=== PATIENT | female | born 1985 | race Caucasian/White ===

== ENCOUNTER 2025-02-23 03:22 | Observation (INO) | payer OTHER, SELFPAY ==
--- OUTSIDE RECORDS SUMMARY | 2025-01-28 15:32 | XMS_ITS | Encounter Summary ---
Author Organization [facility] ([place], [place], [place], [place]) Address [address] [place] [address] Care Team Providers Care Home Health Nurse Licensed Practical Name Role Phone EusebioMoiz Primary Care Provider [phone] Reason for Visit * Reason Comments Chest Pain Encounter Details Date Type Department Care Team (Late st Contact Info) Description 01/28/2025 3:32 PM EDT - 01/28/2025 6:38 PM EDT Emergency [facility] Emergency Department [address] [place] [phone] Rodri Poole MD [address] [place] [address] Chest pain, unspecified (Primary Dx); Chest pain, unspecified type Discharge Disposition: Home or Self Care Social History Tobacco Use Types Packs/Day Years Used Date Smoking Tobacco: Never Smokeless Tobacco: Never Alcohol Use Standard Drinks/Week Comments Not Currently 0 (1 standard drink = 0.6 oz pur e alcohol) Family and Community Support Answer Alber e Recorded Help with Day to Day Activities Not on file 07/22/2023 Feeling Lonely or Isolated Not on file 07/22 Educational Attainment Answer Date Leonidas rded Speak language other than Togolese at home Not on file 07/22/2023 Want help with school or training Not on file 07/22/2023 Substance Use Answer Date Recorded Used prescription meds for non-medical reasons N ot on file 07/22/2023 Used illegal drugs past 12 months Not on file 07/22/2023 Comments No Sex and Gender Information Value Date Recorded Sex Assigned at Not on file Legal Sex Female 8:28 PM CDT Gender Identity Not on file Sexual Orientation Not on file documented as of this encounter Last Filed Vital Signs Vital Sign Reading Time Taken Comments Blood Pressure 136/60 01/28/2025 6:00 PM EDT Pulse 68 01/28/2025 6:37 PM EDT Temperature 36.4 C (97.5 F) 01/28/2025 3:37 PM EDT Respiratory Rate 16 01/28/2025 6:37 PM EDT Oxygen Saturation 97% 01/28/2025 6:37 PM EDT Inhaled Oxygen Concentration - - Weight 77.1 kg (170 lb) 01/28/2025 3:37 PM EDT Height 167.6 cm (5' 6 ) 01/28/2025 3:37 PM EDT Body Mass Index 27.44 01/28/2025 3:37 PM EDT documented in this encounter Discharge Instructions * Discharge Instructions* Pamela Bey NP - 01/28/2025 6:32 PM EDT Please follow-up with your primary care provider and de icer installer in the next 1 to 2 days for recheck. Return to emergency department for new or worsening symptoms. * Attachments The following attachments cannot be sent through Care Everywhere. * Nonspecific Chest Pain Adult [id number] (Togolese) documented in this encounter ED Notes * Pamela eBy NP - 01/28/2025 3:44 PM EDT Subjective Chief Complaint: Chest Pain 33-year-old female with past medical history of pulmonary embolism and cardio myopathy presents to the emergency department with complaints of chest pain. Patient reports she woke up this morning around 9 AM began having midsternal chest pain, does not radiate. She reports associated shortness of breath. She denies abdominal pain, nausea, vomiting. She denies dizziness, lightheadedness, headache.She reports no recent fever or chills. She denies cough, congestion. She reports she is followed bycardiology in [place]. She states that she has frequent PVCs and was apparently scheduled for an ablation last week but had to miss it due to having to work. She takes metoprolol for the PVCs and tachycardia history. History provided by: Patient bilingual interpreter used: No Chest Pain Associated symptoms: shortness of breath Associated symptoms: no abdominal pain, no back pain, no cough, no diaphoresis, no dizziness, no fatigue, no fever, no headache, no nausea, no numbness, no palpitations, no vomiting and no weakness Patient History Past Medical History: Diagnosis Date Cardiomyopathy (HCC) Kidney stones PE (pulmonary thromboembolism) (HCC) Past Surgical History: Procedure Laterality Date HYSTERECTOMY No family history on file. Social History Tobacco Use Smoking status: Never Smokeless tobacco: Never Substance Use Topics Alcohol use: Not Currently I reviewed the HPI, ROS and PFSH documentation recorded by others in the medical record and supplemented my note as needed. Review of Systems Review of Systems Constitutional: Negative for chills, diaphoresis, fatigue and fever. HENT: Negative for congestion, ear pain and sore throat. Respiratory: Positive for shortness of breath. Negative for cough and chest tightness. Cardiovascular: Positive for chest pain. Negative for palpitations and leg swelling. Gastrointestinal: Negative for abdominal pain, blood in stool, constipation, diarrhea, nausea and vomiting. Genitourinary: Negative for dysuria and flank pain. Musculoskeletal: Negative for back pain. Skin: Negative for rash. Neurological: Negative for dizziness, syncope, weakness, light-headedness, numbness and headaches. All other systems reviewed and are negative. Physical Exam ED Triage Vitals [01/28/25 1537] Encounter Vitals Group BP 131/65 Systolic BP Percentile Diastolic BP Percentile Pulse 65 Resp 14 Temp 97.5 ??F (36.4 ??C) Temp src Temporal Art SpO2 97 % Weight 77.1 kg (170 lb) Height 1.676 m (5' 6 ) Head Circumference Peak Flow Pain Score Eight Pain Loc Pain Education Exclude from Growth Chart Physical Exam Vitals and nursing note reviewed. Constitutional: General: She is not in acute distress. Appearance: Normal appearance. She is not ill-appearing, toxic-appearing or diaphoretic. HENT: Head: Normocephalic and atraumatic. Right Ear: Tympanic membrane, ear canal and external ear normal. Left Ear: Tympanic membrane, ear canal and external ear normal. Nose: Nose normal. Mouth/Throat: Mouth: Mucous membranes are moist. Pharynx: Oropharynx is clear. No oropharyngeal exudate or posterior oropharyngeal erythema. Eyes: Extraocular Movements: Extraocular movements intact. Conjunctiva/sclera: Conjunctivae normal. Pupils: Pupils are equal, round, and reactive to light. Neck: Vascular: No JVD. Trachea: No tracheal deviation. Cardiovascular: Rate and Rhythm: Normal rate and regular rhythm. Pulses: Normal pulses. Heart sounds: Normal heart sounds. Heart sounds not distant. No murmur heard. Pulmonary: Effort: Pulmonary effort is normal. No respiratory distress. Breath sounds: Normal breath sounds. No decreased breath sounds or wheezing. Chest: Chest wall: Tenderness present. Abdominal: General: Abdomen is flat. Bowel sounds are normal. Palpations: Abdomen is soft. Tenderness: There is no abdominal tenderness. There is no right CVA tenderness, left CVA tenderness, guarding or rebound. Musculoskeletal: General: Normal range of motion. Cervical back: Normal range of motion and neck supple. No rigidity or tenderness. Right lower leg: No edema. Left lower leg: No edema. Skin: General: Skin is warm and dry. Capillary Refill: Capillary refill takes less than 2 seconds. Findings: No rash. Neurological: General: No focal deficit present. Mental Status: She is alert and oriented to person, place, and time. Mental status is at baseline. Cranial Nerves: No cranial nerve deficit. Motor: No weakness. Psychiatric: Mood and Affect: Mood normal. Behavior: Behavior normal. Neurological Exam Mental Status Alert. Oriented to person, place, and time. Cranial Nerves CN III, IV, : Extraocular movements intact bilaterally. Pupils equal round and reactive to light bilaterally. Ortho Exam ED Course & MDM Medications sodium chloride 0.9% (NS) bolus (0 mLs intravenous Stopped 01/28/25 1740) ketorolac (TORADOL) injection 15 mg (15 mg intravenous Given 01/28/25 1622) morphine injection 4 mg (4 mg intravenous Given 01/28/25 1729) ondansetron (ZOFRAN) injection 4 mg (4 mg intravenous Given 01/28/25 1730) Results for orders placed or performed during the hospital encounter of 01/28/25 CBC with Auto Diff Result Value Ref Range WBC 12.3 (H) 4.8 - 10.8 K/??L RBC 4.35 3.50 - 5.20 M/??L Hemoglobin 13.6 11.7 - 15.8 GM/DL Hematocrit 40.5 35.0 - 47.0 % MCV 93 81 - 101 fL MCH 31.3 27.0 - 34.0 pg MCHC 33.6 32.0 - 36.0 GM/DL RDW 12.6 11.5 - 14.5 % Platelets 274 150 - 400 K/CU MM MPV 10.3 9.4 - 12.4 fL Nucleated Red Blood Cell 0.0 0 - 0.2 % % Neutros 64 37 - 80 % % Lymphs 26 10 - 50 % % Monos 8 5 - 13 % % Eos 2 0 - 7 % % Baso 0 0 - 3 % NRBC Absolute <0.01 0 - 0.012 K/ul # Neutros 7.86 (H) 2.00 - 6.90 K/??L # Lymphs 3.17 0.60 - 3.40 K/??L # Monos 0.93 (H) 0.00 - 0.90 K/??L # Eos 0.21 0.00 - 0.70 K/??L # Baso 0.04 0.00 - 0.20 K/??L Immature Granulocytes-Relative 0.30 % # IG 0.04 (H) 0.00 - 0.00 K/uL Comprehensive metabolic panel Result Value Ref Range Sodium 139 136 - 145 meq/L Potassium 4.2 3.5 - 5.1 meq/L Chloride 106 98 - 107 meq/L CO2 24 21 - 32 meq/L Calcium 8.9 8.5 - 10.1 mg/dL Glucose 109 (H) 74 - 100 mg/dL BUN 10 7 - 18 mg/dL Creatinine 0.82 0.55 - 1.10 mg/dL BUN/Creatinine 12 Albumin 3.6 3.4 - 5.0 g/dL Alkaline Phosphatase 100 46 - 116 U/L ALT 28 12 - 78 U/L AST 30 15 - 37 U/L Total Bilirubin 0.5 0.2 - 1.0 mg/dL Protein, Total 7.6 6.4 - 8.2 gm/dL Anion Gap 13 11 - 22 A/G Ratio 0.9 Globulin 4.0 g/dL Osmolality Calc 277.2 mOsm/kg eGFR (mL/min/1.73m2) >60 >=60 mL/min/1.73m2 Lipase Result Value Ref Range Lipase 41 16 - 77 U/L Magnesium Result Value Ref Range Magnesium 2.0 1.8 - 2.4 mg/dL High Sensitivity Troponin I Result Value Ref Range Troponin I High Sensitivity (pg/mL) 4.5 4 - 60.3 pg/mL D-dimer Result Value Ref Range D-Dimer, Quant (SJMS SJE) 249.97 <=500.00 ng/mL FEU High Sensitivity Troponin I Result Value Ref Range Troponin I High Sensitivity (pg/mL) 4.9 4 - 60.3 pg/mL XR chest 1 view portable / bedside Final Result No acute cardiopulmonary process. Images reviewed, interpreted, and dictated by Dr. John Condon. Transcribed by Kayli Morales PA-C. ED Course as of 01/28/251831Jan 28, [address] Poole: I saw the patient [id number]. I performed a substantive portion of the MDM. [AR] ED Course User Index [AR] oRdri Poole MD ED Heart Score Date and Time Another reason for the patient's symptoms was identified History ECG Age Risk factorsTroponin Total User 01/28/25 1831 -- 1 0 0 1 0 2 CJS Procedures Medical Decision Making Patient initially presents with chest pain. On arrival patient no apparent distress, vital signs are reassuring. Patient is alert and oriented x 4, GCS 15, neurologically intact. Patient has reproducible chest tenderness on exam. Lungs clear bilaterally. Will obtain labs, EKG, chest x-ray. Patient given IV fluid bolus and Toradol. EKG sinus rhythm, no STEMI. X-ray per radiologist interpretation reveals no acute cardiopulmonary process. CBC reveals white blood cell 12.3 otherwise nonactionable. CMP nonactionable, lipase nonactionable, magnesium nonactionable, troponin 4.5. D-dimer nonactionable so suspicion for pulmonary emboli is very low. Repeat EKG sinus bradycardia, no STEMI. I called and spoke with Dr. Fraser at [facility] and he states patient should be ableto follow-up outpatient with their cardiology electrophysiology office. He will place referral for them to contact patient for close follow-up. Repeat troponin 4.9. Discussed findings with patient. On reassessment she is feeling better, chest pain-free. She has remained hemodynamically stable in the emergency department. Advised patient that she should call her de icer installer in the morning to establish close follow-up and reestablish appointment for ablation. Discussed returning to emergency depa rtment for any new or worsening symptoms. Cautious return precautions provided. Patient verbalized understanding and is agreeable to treatment plan. Amount and/or Complexity of Data Reviewed Labs: ordered. Decision-making details documented in ED Course. Radiology: ordered. Decision-making details documented in ED Course. ECG/medicine tests: ordered. Decision-making details documented in ED Course. Risk Prescription drug management. Assessment & Plan Clinical Impression Diagnosis Comment Added By Time Added Chest pain, unspecified Pamela Bey NP 01/28/2025 6:31 PM Disposition Discharge [1] - 01/28/2025 6:32 PM New Prescriptions No medications on file Contact information for follow-up Moiz Kapaln DO Specialty: Family Medicine Relationship: PCP - [facility] [address] [facility] [address] Next Steps: Schedule an appointment as soon as possible for a visit [facility] Emergency Department Specialty: Emergency Medicine [address] [facility] [phone] Next Steps: Follow up Instructions: As needed, If symptoms worsen Electronically Signed By Pamela Bey NP 01/28/25 1751 Pamela Bey NP 01/28/25 1832 Cosigned by Rodri Poole MD at 01/29/2025 5:20 PM EDT Associated attestation - Rodri Poole MD - 01/29/2025 4:20 PM CDT This visit was performed by both the physician and an APC. I personally evaluated and examined thepatient. I performed all aspects of the MDM as documented. . documented in this encounter Plan of Treatment Not on file documented as of this encounter Procedures Procedure Name Priority Date/Time Associated Diagnosis Comments FS_MODEL_IP_ECG 12-LEAD STAT 01/28/2025 6:05 PM EDT HIGH SENSITIVITY TROPONIN I STAT 01/28/2025 6:05 PM EDT CBC W/ AUTO DIFF STAT 01/28/2025 4:19 PM EDT HIGH SENSITIVITY TROPONIN I STAT 01/28/2025 4:19 PM EDT D-DIMER STAT 01/28/2025 4:19 PM EDT MAGNESIUM STAT 01/28/2025 4:19 PM EDT LIPASE STAT 01/28/2025 4:19 PM EDT COMPREHENSIVE METABOLIC PANEL STAT 01/28/2025 4:19 PM EDT XR CHEST 1 VIEW PORTABLE / BEDSIDE STAT 01/28/2025 3:44 PM EDT FS_MODEL_IP_ECG 12-LEAD STAT 01/28/2025 3:31 PM EDT documented in this encounter Results * ECG 12 lead (01/28/2025 6:05 PM EDT) VENTRICULAR RATE EKG/MIN 56 BPM GE MUSE ATRIAL RATE (MCT) 56 BPM GE MUSE [place] Interval 132 ms GE MUSE QRS-INTERVAL (MSEC) 76 ms GE MUSE QT Interval 452 ms GE MUSE QTC Interval 436 ms GE MUSE P [place] 49 degrees GE MUSE R AXIS (MCT) 41 degrees GE MUSE T Wave [place] 43 degrees GE MUSE [place] Diagnosis Sinus bradycardia Otherwise normal ECG Confirmed by Phu GAONA, YOSELIN ([id number]) on 01/29/2025 9:07:22 AM GE MUSE 01/28/2025 6:05 PM EDT 01/29/2025 9:07 AM EDT us Pamela J Strange SUPERVISOR FINAL ECG ORDERABLES Final Result Performing Organization Address City/[facility]/ZIP Co de Phone Number GE MUSE * High Sensitivity Troponin I (01/28/2025 6:05 PM EDT) Pathologist [facility] Troponin I High Sensitivity (pg/mL) 4.9 4 - 60.3 pg/mL 01/28/2025 6:29 PM EDT [facility] Comment: Troponin Result (pg/mL) *Interpretation 4-60.3 *Normal; less than 99th percentile of normal range >60.3 *Abnormal; greater than 99th percentile of normal range Biotin specimen concentration >300 ng/mL may lead to falsely depressed results for patient samples. Do not use this test for renal dysfunction patients (eGFR <60) unless it is confirmed that the patient is not taking Biotin. Blood Venipuncture / Unknown 01/28/2025 6:05 PM EDT 01/28/2025 6:08 PM EDT Pamela Herokunge SUPERVISOR FINAL LAB BLOOD ORDERABLES Final Res ult Performing Organization Address City/[facility] Co de Phone Number [facility] [address] [place] [address] * D-dimer (01/28/2025 4:19 PM EDT) Pathologist [facility] D-Dimer, Quant (SJMS SJE) 249.97 <=500.00 ng/mL FEU 01/28/2025 5:17 PM EDT [facility] Comment: A normal D-dimer result <500 ng/mL (FEU) has a negative predictive value of approximately 95% for the exclusion of acute pulmonary embolism (PE) or deep vein thrombosis when there is low or moderate pretest PE probability. D-dimer Normal Rates First trimester: 50-950 ng/mL (FEU) Second trimester: 302-1290 ng/mL (FEU) Third trimester: 130-1700 ng/mL (FEU) Blood Venipuncture / Unknown 01/28/2025 4:19 PM EDT 01/28/2025 4:25 PM EDT us Pamela J Strange SUPERVISOR FINAL LAB BLOOD ORDERABLES Final Res ult Performing Organization Address City/[facility]/ZIP Co de Phone Number [facility] [address] [place] [address] * High Sensitivity Troponin I (01/28/2025 4:19 PM EDT) Troponin I High Sensitivity (pg/mL) 4.5 4 - 60.3 pg/mL 01/28/2025 4:51 PM EDT [facility] Comment: Troponin Result (pg/mL) *Interpretation 4-60.3 *Normal; less than 99th percentile of normal range >60.3 *Abnormal; greater than 99th percentile of normal range Biotin specimen concentration >300 ng/mL may lead to falsely depressed results for patient samples. Do not use this test for renal dysfunction patients (eGFR <60) unless it is confirmed that the patient is not taking Biotin. Blood Venipuncture / Unknown 01/28/2025 4:19 PM EDT 01/28/2025 4:25 PM EDT us Pamela J Strange SUPERVISOR FINAL LAB BLOOD ORDERABLES Final Res ult Performing Organization Address [facility] Co de Phone Number [facility] [address] [place] [address] * Magnesium (01/28/2025 4:19 PM EDT) Magnesium 2.0 1.8 - 2.4 mg/dL 01/28/2025 4:51 PM EDT [facility] Blood Venipuncture / Unknown 01/28/2025 4:19 PM EDT 01/28/2025 4:25 PM EDT us Pamela J Strange SUPERVISOR FINAL LAB BLOOD ORDERABLES Final Res ult [facility] [address] [place] [address] * Lipase (01/28/2025 4:19 PM EDT) Lipase 41 16 - 77 U/L 01/28/2025 4:51 PM EDT [facility] Blood Venipuncture / Unknown 01/28/2025 4:19 PM EDT 01/28/2025 4:25 PM EDT us Pamela Bey SUPERVISOR FINAL LAB BLOOD ORDERABLES Final Res ult [facility] [address] [phone] * (ABNORMAL) Comprehensive metabolic panel (01/28/2025 4:19 PM EDT) Sodium 139 136 - 145 meq/L 01/28/2025 4:52 PM EDT [facility] Potassium 4.2 3.5 - 5.1 meq/L 01/28/2025 4:52 PM EDT [facility] Chloride 106 98 - 107 meq/L 01/28/2025 4:52 PM EDT [facility] CO2 24 21 - 32 meq/L 01/28/2025 4:52 PM EDT [facility] Calcium 8.9 8.5 - 10.1 mg/dL 01/28/2025 4:52 PM EDT [facility] Glucose 109(H) 74 - 100 mg/dL 01/28/2025 4:52 PM EDT [facility] BUN 10 7 - 18 mg/dL 01/28/2025 4:52 PM EDT [facility] Creatinine 0.82 0.55 - 1.10 mg/dL 01/28/2025 4:52 PM EDT [facility] BUN/Creatinine 12 01/28/2025 4:52 PM EDT [facility] Albumin 3.6 3.4 - 5.0 g/dL 01/28/2025 4:52 PM EDT [facility] Alkaline Phosphatase 100 46 - 116 U/L 01/28/2025 4:52 PM EDT [facility] ALT 28 12 - 78 U/L 01/28/2025 4:52 PM EDT [facility] AST 30 15 - 37 U/L 01/28/2025 4:52 PM EDT [facility] Total Bilirubin 0.5 0.2 - 1.0 mg/dL 01/28/2025 4:52 PM EDT [facility] Protein, Total 7.6 6.4 - 8.2 gm/dL 01/28/2025 4:52 PM EDT [facility] Anion Gap 13 11 - 22 01/28/2025 4:52 PM EDT [facility] A/G Ratio 0.9 01/28/2025 4:52 PM EDT [facility] Globulin 4.0 g/dL 01/28/2025 4:52 PM EDT [facility] Osmolality Calc 277.2 mOsm/kg 4:52 PM EDT [facility] eGFR (mL/min/1.73m2) >60 >=60 mL/min/1.7 3m2 01/28/2025 4:52 PM EDT [facility] Comment:ESTIMATED GFR IS NOT ACCURATE CREATININE CLEARANCE IN PREDICTING GLOMERULAR FILTRATION RATE. ESTIMATED GFR IS NOT APPLICABLE FOR DIALYSIS PATIENTS. Blood Venipuncture / Unknown 01/28/2025 4:19 PM EDT 01/28/2025 4:25 PM EDT us Pamela Bey SUPERVISOR FINAL LAB BLOOD ORDERABLES Final Res ult [facility] [address] [place] [address], [facility] [phone] * (ABNORMAL) CBC with Auto Diff (01/28/2025 4:19 PM EDT) WBC 12.3(H) 4.8 - 10.8 K/ L 01/28/2025 4:29 PM EDT [facility] RBC 4.35 3.50 - 5.20 M/ L 01/28/2025 4:29 PM EDT [facility] Hemoglobin 13.6 11.7 - 15.8 GM/DL 01/28/2025 4:29 PM EDT [facility] Hematocrit 40.5 35.0 - 47.0 % 01/28/2025 4:29 PM EDT [facility] MCV 93 81 - 101 fL 01/28/2025 4:29 PM EDT [facility] MCH 31.3 27.0 - 34.0 pg 01/28/2025 4:29 PM EDT [facility] MCHC 33.6 32.0 - 36.0 GM/DL 01/28/2025 4:29 PM EDT [facility] RDW 12.6 11.5 - 14.5 % 01/28/2025 4:29 PM EDT [facility] Platelets 274 150 - 400 K/CU MM 01/28/2025 4:29 PM EDT [facility] MPV 10.3 9.4 - 12.4 fL 01/28/2025 4:29 PM EDT [facility] Nucleated Red Blood Cell 0.0 0 - 0.2 % 01/28/2025 4:29 PM EDT [facility] % Neutros 64 37 - 80 % 01/28/2025 4:29 PM EDT [facility] % Lymphs 26 10 - 50 % 01/28/2025 4:29 PM EDT [facility] % Monos 8 5 - 13 % 01/28/2025 4:29 PM EDT [facility] % Eos 2 0 - 7 % 01/28/2025 4:29 PM EDT [facility] % Baso 0 0 - 3 % 01/28/2025 4:29 PM EDT [facility] NRBC Absolute <0.01 0 - 0.012 K/ul 01/28/2025 4:29 PM EDT [facility] # Neutros 7.86(H) 2.00 - 6.90 K/ L 01/28/2025 4:29 PM EDT [facility] # Lymphs 3.17 0.60 - 3.40 K/ L 01/28/2025 4:29 PM EDT [facility] # Monos 0.93(H) 0.00 - 0.90 K/ L 01/28/2025 4:29 PM EDT [facility] # Eos 0.21 0.00 - 0.70 K/ L 01/28/2025 4:29 PM EDT [facility] # Baso 0.04 0.00 - 0.20 K/ L 01/28/2025 4:29 PM EDT [facility] Immature Granulocytes-Re lative 0.30 % 01/28/2025 4:29 PM EDT [facility] # IG 0.04(H) 0.00 - 0.00 K/uL 01/28/2025 4:29 PM EDT [facility] Blood Venipuncture / Unknown 01/28/2025 4:19 PM EDT 01/28/2025 4:25 PM EDT Narrative [facility] - 01/28/2025 4:29 PM EDT When CBC w/ Auto Diff is ordered the lab will add a Manual Differential as a quality check at no additional charge if: Lymphocytes greater than seventy five percent with normal or increased WBC Monocytes greater than Fifteen percent Basophil greater than four percent Bands >10% or several immature myeloids are seen on scan Blast? Flag noted Atypical Lymph flag noted us Pamela Bey SUPERVISOR FINAL LAB BLOOD ORDERABLES Final Res ult [facility] [address] [place] [address], [facility] [phone] * XR chest 1 view portable / bedside (01/28/2025 3:44 PM EDT) Anatomical Region Laterality Modality X-Ray 01/28/2025 4:10 PM EDT Impressions 01/28/2025 4:22 PM EDT No acute cardiopulmonary process. Images reviewed, interpreted, and dictated by Dr. John Condon. Transcribed by Kayli Morales PA-C. Narrative 01/28/2025 4:22 PM EDT PORTABLE CHEST HISTORY: Precordial chest pain. COMPARISON: August 2024. FINDINGS: The heart is normal in size. The mediastinum is unremarkable. The lungs are clear. There is no pneumothorax. Procedure Note Carlene Condon MD - 01/28/2025 PORTABLE CHEST HISTORY: Precordial chest pain. COMPARISON: August 2024. FINDINGS: The heart is normal in size. The mediastinum is unremarkable. The lungs are clear. There is no pneumothorax. IMPRESSION: No acute cardiopulmonary process. Images reviewed, interpreted, and dictated by Dr. John Condon. Transcribed by Kayli Morales PA-C. Pamela Bey NP IMG DIAGNOSTIC IMAGING ORDERAB LES Final Result * ECG 12 lead (01/28/2025 3:31 PM EDT) VENTRICULAR RATE EKG/MIN 64 BPM GE MUSE ATRIAL RATE (MCT) 64 BPM GE MUSE [place] Interval 144 ms GE MUSE QRS-INTERVAL (MSEC) 78 ms GE MUSE QT Interval 422 ms GE MUSE QTC Interval 435 ms GE MUSE P [place] 45 degrees GE MUSE R AXIS (MCT) 40 degrees GE MUSE T Wave [place] 45 degrees GE MUSE [place] Diagnosis Normal sinus rhythm Right atrial enlargement Confirmed by Phu GAONA, YOSELIN ([id number]) on 01/29/2025 9:09:45 AM GE MUSE 01/28/2025 3:31 PM EDT 01/29/2025 9:09 AM EDT Pamela Bey NP ECG ORDERABLES Final Result GE MUSE documented in this encounter Visit Diagnoses Diagnosis Chest pain, unspecified- Primary Chest pain, unspecified type documented in this encounter Administered Medications Inactive Administered Medications - up to 3 most recent administrations Medication Order MAR Action Action Date Dose Rate Site ketorolac (TORADOL) injection 15 mg 15 mg Once, intravenous, On Tue01/28/25 at 1540, For 1 dose Given 01/28/2025 4:22 PM EDT 15 mg morphine injection 4 mg 4 mg Once, intravenous, On Tue01/28/25 at 1730, For 1 dose Given 01/28/2025 5:29 PM EDT 4 mg ondansetron (ZOFRAN) injection 4 mg 4 mg Once, intravenous, On Tue01/28/25 at 1730, For 1 dose, For IV push, give over 2 - 5 minutes. Given 01/28/2025 5:30 PM EDT 4 mg sodium chloride 0.9% (NS) bolus 1,000 mL Once, intravenous, Administer over 60 Minutes, On Tue01/28/25 at 1540, For 1 dose New Bag 01/28/2025 4:21 PM EDT 1,000 mLs 1000 mL/hr documented in this encounter Active and Recently Administered Medications Times are shown in EDT. Scheduled Medication Order 01/26/2025 01/27/2025 01/28/2025 ketorolac (TORADOL) injection 15 mg (COMPLETED) 15 mg Once, intravenous, On Tue01/28/25 at 1540, For 1 dose 1622 (Given - Provid er: Tiara Vizcaino RN) morphine injection 4 mg (COMPLETED) 4 mg Once, intravenous, On Tue01/28/25 at 1730, For 1 dose 1729 (Given - Provid er: Tiara Vizcaino RN) ondansetron (ZOFRAN) injection 4 mg (COMPLETED) 4 mg Once, intravenous, On Tue01/28/25 at 1730, For 1 dose, For IV push, give over 2 - 5 minutes. 1730 (Given - Provid er: Tiara Vizcaino RN) sodium chloride 0.9% (NS) bolus (COMPLETED) 1,000 mL Once, intravenous, Administer over 60 Minutes, On Tue01/28/25 at 1540, For 1 dose 1621 (New Bag - Prov ider: Tiara Vizcaino RN)1740 (Stopped - Provider: Tiara Vizcaino RN) documented in this encounter Care Teams Home Health Nurse Licensed Practical Relationship Specialty Start Date End Date Moiz Kaplan, DO [address] [place] [address] PCP - General Family Medicine 02/19/23 documented as of this encounter
--- OUTSIDE RECORDS SUMMARY | 2025-02-13 15:30 | XMS_ITS | Encounter Summary ---
Author Organization [facility] Address [address] [place] [address] Care Team Providers Care Chief Of Service Name Role Phone Moiz Kaplan DO Primary Care Provider [phone] Reason for Referral * Cardiac Stress Testing (Routine) - Closed Specialty Diagnoses / Procedures Referred By Solis gore Referred To Contact Cardiology Diagnoses PVC (premature ventricular contraction) Procedures Adult Patch Monitor - 14 Day Clau Farrell APRN [address] [place] [address] Phone: tel: fax: Referral ID Status Reason Start Date Expiration Date Visits Re quested Visits Authorized [id number] Closed 02/13/2025 08/15/2026 1 1 * Consultation (Routine) - Authorized Specialty Diagnoses / Procedures Referred By Solis gore Referred To Contact Diagnoses Cardiomyopathy, hypertrophic (CMS/HCC) Clau Farrell APRN [address] [place] [address] Phone: tel: fax: Referral ID Status Reason Start Date Expiration Date V isits Requested Visits Authorized [id number] Authorized 02/13/2025 08/15/2026 1 1 Reason for Visit * Reason Comments Palpitations Encounter Details Date Type Department Care Team (Late st Contact Info) Description 02/13/2025 3:30 PM EDT Office Visit [facility] [address] [facility], [address] [place] [address] Clau Farrell, [employer] [address] [place] [address] Paroxysmal atrial fibrillation (CMS/HCC) (Primary Dx); Palpitations; Cardiomyopathy, hypertrophic (CMS/HCC); PVC (premature ventricular contraction) Social History Tobacco Use Types Packs/Day Years Used Date Smoking Tobacco: Never Smokeless Tobacco: Never Tobacco Cessation:Counseling Given: Not Answered Alcohol Use Standard Drinks/Week Comments Never 0 (1 standard drink = 0.6 oz pur e alcohol) PHQ-2 Answer Date Recorded Patient Health Questionnaire-2 Score 0 02/13/2025 PHQ-9 Answer Date Recorded Patient Health Questionnaire-9 Score 0 02/13/2025 AUDIT-C Answer Date Recorded Q1: How often do you have a drink containing alcohol? Never 02/13/2025 Q2: How many drinks containi ng alcohol do you have on a typical day when you are drinking? Patient does not drink Q3: How often do you have si x or more drinks on one occasion? Never 02/13/2025 Comments Unknown Sex and Gender Information Value Date Recorded Sex Assigned at Not on file Legal Sex Female 6:31 PM EDT Gender Identity Not on file Sexual Orientation Not on file documented as of this encounter Last Filed Vital Signs Vital Sign Reading Time Taken Comments Blood Pressure 121/81 02/13/2025 3:23 PM EDT Pulse 57 02/13/2025 3:23 PM EDT Temperature - - Respiratory Rate - - Oxygen Saturation 97% 02/13/2025 3:23 PM EDT Inhaled Oxygen Concentration - - Weight 85.2 kg (187 lb 13.3 oz) 02/13/2025 3:23 PM EDT Height 165.1 cm (5' 5 ) 02/13/2025 3:23 PM EDT Body Mass Index 31.26 02/13/2025 3:23 PM EDT documented in this encounter Functional Status * AUDIT-C Score Answer Date of Assessment Author 0 02/13/2025 3:20 PM EDT Justice Valles * Question Answer Date of Assessment Author Q1: How often do you have a drink containing alcohol? Never 02/13/2025 3:20 PM EDT Art Valles Q2: How many drinks containing alcohol do you have on a typical day when you are drinking? Patient does not drink 02/13/2025 3:20 PM EDT Art Valles Q3: How often do you have six or more drinks on one occasion? Never 02/13/2025 3:20 PM EDT Art Valles * Over the past 2 weeks, how often have you been bothered by any of the following problems? Question Answer Date of Assessment Author Little interest or pleasure in doing things Not at all 02/13/2025 3:20 PM JESUST Art Valles Feeling down, depressed, or hopeless Not at all 02/01 3:20 PM EDT Art Valles Patient Health Questionnaire-2 Score 0 02/01 3:20 PM EDT Art Valles * Question Answer Date of Assessment Author Trouble falling or staying a sleep, or sleeping too much Not at all 02/13/2025 3:20 PM EDArt Moe Feeling tired or having ninoska le energy Not at all 02/13/2025 3:20 PM JESUST Art Valles Poor appetite or overeating Not at all 02/13/2025 3: 20 PM JESUST Art Valles Feeling bad about yourself - or that you are a failure or have let yourself or your family down Not at all 02/13/2025 3:20 PM JESUST Lazaro Valles Trouble concentrating on thi ngs, such as reading the newspaper or watching television Not at all 02/13/2025 3:20 PM JESUST Art Valles Moving or speaking so slowly that other people could have noticed? Or the opposite - being so fidgety or restless that you have been moving around a lot more than usual. Not at all 02/13/2025 3:20 PM Art Cao Thoughts that you would be b gayla off or hurting yourself in some way Not at all 02/13/2025 3:20 PM JESUST Art Valles Patient Health Questionnaire-9 Score 0 02/01 3:20 PM EDT Art Valles * Calculated C-SSRS Risk Score (Lifetime/Recent) Answer Date of Assessment Author No Risk Indicated 02/13/2025 3:20 PM EDT Art Valles * If you checked off any problems on this questionnaire so far, Question Answer Date of Assessment Author How difficult have these problems made it for you to do your work, take care of things at home, or get along with other people? Not difficult at all 02/13/2025 3:20 PM EDT Art Valles * Question Answer Date of Assessment Author 1. Wish to be (Past 1 Month) No 025 3:20 PM EDT Art Valles 2. Non-Specific Active Suici dimitri Thoughts (Past 1 Month) No 02/13/2025 3:20 PM EDT Art Valles 6. Suicidal Behavior (Lifetime) No 3:20 PM EDT Art Valles documented as of this encounter Miscellaneous Notes * Progress Notes - Clau Farrell APRN - 02/13/2025 3:30 PM EDT Images from the original note were not included. Cardiology Clinic Note Date of Visit 02/12/25 Patient Teresa Steele [address] [facility] [address] Referring Provider No ref. provider found PCP Moiz Kaplan, DO SUBJECTIVE History of Present Illness Today I saw Teresa Steele, a 39 y.o. female at [facility] for consultation of chest pain at the request of No ref. provider found. She has hypertrophic cardiomyopathy, she is having PVCs and needs a PVC ablation. She was in the ER and she is SOB and her arm was numb. She has chest pain all the time, does not go away, does not improve with nitroglycerin. She reports dizziness, and shortness of breath, it feels someone is pushing on her chest and squeezing it. She has palpitations, has wore monitors in the past. Wore one for 2 weeks, 3 months ago. PMH- pulmonary embolism, hypertrophic cardiomyopathy, and PVCs Problem List Problem List[1] Past Medical History Past Medical History[2] Past Surgical History Surgical History[3] Family History Family History[4] Social History Social History[5] Current Medications Current Medications[6] Allergies Allergies[7] Review of Systems 14 point ROS negative except as listed in HPI. OBJECTIVE Vitals 11/12/2024 12:10 PM 11/12/2024 6:30 PM 02/13/2025 3:23 PM Vitals Systolic 103 120 121 Diastolic 72 58 81 Heart Rate 72 60 57 Temp 36.6 C 36.5 C Resp 20 18 Height (cm) 165.1 cm Weight (kg) 77.111 kg 85.2 kg BMI 31.26 kg/m2 BSA (m2) 1.98 m2 Visit Report Report Physical Exam Physical Exam Vitals reviewed. Constitutional: Appearance: Normal appearance. HENT: Head: Normocephalic and atraumatic. Eyes: Extraocular Movements: Extraocular movements intact. Cardiovascular: Rate and Rhythm: Normal rate and regular rhythm. Pulses: Normal pulses. Heart sounds: Normal heart sounds. Pulmonary: Effort: Pulmonary effort is normal. Breath sounds: Normal breath sounds. Skin: General: Skin is warm and dry. Capillary Refill: Capillary refill takes less than 2 seconds. Neurological: General: No focal deficit present. Mental Status: She is alert and oriented to person, place, and time. Psychiatric: Mood and Affect: Mood normal. Behavior: Behavior normal. Thought Content: Thought content normal. Judgment: Judgment normal. Diagnostics No echocardiogram results found for the past 12 months Lab Review Lab Results Component Value Date/Time WBC 7.83 11/12/2024 1345 RBC 4.50 11/12/2024 1345 HGB 14.0 11/12/2024 1345 HCT 42.8 11/12/2024 1345 Lab Results Component Value Date/Time GLUCOSE 123 (H) 11/12/2024 1345 BUN 10 11/12/2024 1345 CREATININE 0.73 11/12/2024 1345 NA 139 11/12/2024 1345 K 3.8 11/12/2024 1345 CL 105 11/12/2024 1345 No results found for: AST , ALT , ALKPHOS No results found for: CHOL , LDL , LDLCALC , HDL , TRIG No results found for: HGBA1C No results found for: TSH , FREET4 ASSESSMENT AND PLAN Visit Diagnoses and Orders 1. Paroxysmal atrial fibrillation (CMS/HCC) (Primary) -EKG today showed NSR - ECG Adult (Now - Performed in your clinic) 2. Palpitations Will get a patch to assess for dysrhythmias - Adult Patch Monitor - 7 Day; Future 3. Cardiomyopathy, hypertrophic (CMS/HCC) -Reviewed echo from previous full time and echo was normal. After reviewing previous echo, probably a CMR is not indicated. Will discuss with Dr. Rivera - Follow Up Cardiology; Future 4. PVC (premature ventricular contraction) -PVCs noted one patch. Received a hert monitor patch from her previous full time and she had a 13% burden. - Adult Patch Monitor - 14 Day; Future FOLLOW UP: MD and OSMIN addressed the current illness, reviewing records (prior imaging, lab work, etc), and formulating a plan. The patient is agreeable to the plan and all pertinent questions were answered. Thepatient's cardiac evaluation was discussed with Dr. Rivera who agrees with the plan. No ref. provider found, thank you for the consultation. Please do not hesitate to contact us with any questions. Clau Farrell APRN [1] There is no problem list on file for this patient. [2] No past medical history on file. [3] No past surgical history on file. [4] No family history on file. [5] [6] No current outpatient medications on file. [7] Allergies Allergen Reactions Topiramate Hives Penicillin G Other - please document in the comment field documented in this encounter Plan of Treatment Upcoming Encounters Date Type Department Care Team (Late st Contact Info) Description 03/19/2025 9:00 AM EDT Office Visit [facility] [address] [facility], [address] [place] [address] Manjinder Munoz MD [address] [place] [address] Pending Results Name Type Priority Associated Diagnoses Date /Time Adult Patch Monitor - 14 Day Cardiac Services Routine PVC (premature ventricular contraction) 02/13/2025 4:25 PM EDT Scheduled Orders Name Type Priority Associated Diagnoses Orde r Schedule Adult Patch Monitor - 14 Day Cardiac Services Routine PVC (premature ventricular contraction) Expected: 02/13/2025, Expires: 08/17/2026 Scheduled Referrals Name Type Priority Associated Diagnoses Orde r Schedule Follow Up Cardiology Outpatient Referral Routine Cardiomyopathy, hypertrophic (CMS/HCC) Expected: 05/16/2025, Expires: 08/16/2026 documented as of this encounter Procedures Procedure Name Priority Date/Time Associated Diagnosis Comments ECG ADULT Routine 02/13/2025 3:52 PM EDT Paroxysmal atrial fibrillation (CMS/HCC) documented in this encounter Results * ECG Adult (Now - Performed in your clinic) (02/13/2025 3:52 PM EDT) EKG DIAGNOSIS CLASS Abnormal MUSE ECG Ventricular Rate 63 BPM MUSE ECG Atrial Rate 63 BPM MUSE ECG MO Interval 146 ms MUSE ECG QRSD Interval 74 ms MUSE ECG QT Interval 418 ms MUSE ECG QTC Interval 427 ms MUSE ECG P [place] 37 degrees MUSE ECG R [place] 19 degrees MUSE ECG T Wave [place] 27 degrees MUSE ECG Diagnosis Normal sinus rhythm MUSE ECG Diagnosis Prolonged QT MUSE ECG Diagnosis Abnormal ECG MUSE ECG Diagnosis MUSE ECG Diagnosis Confirmed by Tania Fonseca ([id number]) on 02/14/2025 9:38:18 AM MUSE ECG 02/13/2025 3:52 PM EDT 02/14/2025 9:38 AM EDT Clau Farrell APRN ECG ORDERABLES Final Result MUSE ECG documented in this encounter Visit Diagnoses Diagnosis Paroxysmal atrial fibrillation (CMS/HCC)- Primary Atrial fibrillation Palpitations Cardiomyopathy, hypertrophic (CMS/HCC) PVC (premature ventricular contraction) Other premature beats documented in this encounter Additional Health Concerns Assessment Noted Time PHQ-9 Depression Total Score: 0 02/14/20 3:20 PM EDT A fall risk assessment has been complete d for the patient 02/13/2025 3:20 PM EDT A Body Mass Index follow-up plan has been documented for the patient 02/13/2025 4:25 PM EDT documented as of this encounter Care Teams Chief Of Service Relationship Specialty Start Date End Date Moiz Kaplan DO [address] [place] [address] PCP - General 11/12/24 documented as of this encounter
--- OUTSIDE RECORDS SUMMARY | 2025-02-13 16:15 | XMS_ITS | Encounter Summary ---
Author Organization [facility] Address [address] [place] [address] Care Team Providers Care General Manager Road Production Name Role Phone Moiz Kaplan DO Primary Care Provider [phone] Reason for Referral * Cardiac Stress Testing (Routine) - Closed Specialty Diagnoses / Procedures Referred By Solis gore Referred To Contact Cardiology Diagnoses PVC (premature ventricular contraction) Procedures Adult Patch Monitor - 14 Day Clau Farrell APRN [address] [place] [address] Phone: tel: fax: Referral ID Status Reason Start Date Expiration Date Visits Re quested Visits Authorized [id number] Closed 02/13/2025 08/15/2026 1 1 Reason for Visit * Cardiac Stress Testing (Routine) - Closed Specialty Diagnoses / Procedures Referred By Solis gore Referred To Contact Cardiology Diagnoses PVC (premature ventricular contraction) Procedures Adult Patch Monitor - 14 Day Clau Farrell APRN [address] [place] [address] Phone: tel: fax: Referral ID Status Reason Start Date Expiration Date Visits Re quested Visits Authorized [id number] Closed 02/13/2025 08/15/2026 1 1 Encounter Details Date Type Department Care Team (Latest Contact Info) Description 02/13/2025 4:15 PM EDT - 02/13/2025 11:59 PM EDT Hospital Encounter Medical Office Building Cardiac Diagnostic Testing Medical Office Building Echo Lab [address] [facility] [address], [address] [place] [address] PVC (premature ventricular contraction) Discharge Disposition: Home or Self Care Social History Tobacco Use Types Packs/Day Years Used Date Smoking Tobacco: Never Smokeless Tobacco: Never Alcohol Use Standard Drinks/Week Comments Never 0 [...] on file documented as of this encounter Functional Status * AUDIT-C Score [...] things Not at all 02/13/2025 3:20 PM Art Cao Feeling down, depressed, or hopeless Not at all 02/01 3:20 PM EDT Art Valles Patient Health Questionnaire-2 Score 0 02/01 3:20 PM EDT Art Valles * Question Answer Date of Assessment Author Trouble falling or staying a sleep, or sleeping too much Not at all 02/13/2025 3:20 PM EDT Art Valles Feeling tired or having ninoska le energy Not at all 02/13/2025 3:20 PM EDT Art Valles Poor appetite or overeating Not at all 02/13/2025 3: 20 PM EDT Art Valles Feeling bad about yourself - or that you are a failure or have let yourself or your family down Not at all 02/13/2025 3:20 PM EDT Lazaro Valles Trouble concentrating on thi ngs, such as reading the newspaper or watching television Not at all 02/13/2025 3:20 PM JESUST Art Valles Moving or speaking so slowly that other people could have noticed? Or the opposite - being so fidgety or restless that you have been moving around a lot more than usual. Not at all 02/13/2025 3:20 PM EDT Art Valles Thoughts that you would be b gayla off or hurting yourself in some way Not at all 02/13/2025 3:20 PM EDT Art Valles Patient Health Questionnaire-9 Score 0 02/01 3:20 PM EDT Art Valles * Calculated C-SSRS Risk Score (Lifetime/Recent) Answer Date of Assessment Author No Risk Indicated 02/13/2025 3:20 PM JESUST Art Valles * If you checked off [...] Art Valles documented as of this encounter Medications at Time of Discharge amLODIPine (Norvasc) 5 MG tabletIndications: Cardiomyopathy, hypertrophic (CMS/HCC) Take 1 tablet by mouth daily. 90 tablet 2 02/13/2025 amphetamine-dextro amphetamine XR (Adderall XR) 20 MG 24 hr capsule Take 1 capsule by mouth every morning. Do not crush or chew. metoprolol succinate XL (Toprol-XL) 25 MG 24 hr tablet Take 1 tablet by mouth daily. Do not crush or chew. nitroglycerin (Nitrostat) 0.[address] 1 tablet under the tongue every 5 minutes as needed for chest pain. documented as of this encounter Plan of Treatment Upcoming Encounters Date Type Department Care Team (Late st Contact Info) Description 03/19/2025 9:00 AM EDT Office Visit [facility] [place] [address] [facility], [address] [place] [address] Manjinder Munoz MD [address] [place] [address] Pending Results Name Type Priority Associated Diagnoses Date /Time Adult Patch Monitor - 14 Day Cardiac Services Routine PVC (premature ventricular contraction) 02/13/2025 4:25 PM EDT Scheduled Orders Name Type Priority Associated Diagnoses Orde r Schedule Adult Patch Monitor - 14 Day Cardiac Services Routine PVC (premature ventricular contraction) Once for 1 Occurrences starting 02/14/2025 until 02/14/2025 documented as of this encounter Visit Diagnoses Diagnosis PVC (premature ventricular contraction) Other premature beats [...] documented as of this encounter Care Teams General Manager Road Production Relationship Specialty Start Date End Date Moiz Kaplan DO [address] [place] [address] PCP - General 11/12/24 documented as of this encounter
[2025-02-23] VITALS (7 sets, daily range): BP systolic 92–154; BP diastolic 60–90; PULSE 59–69; RESP 16–24; TEMP 36.7–37.1; O2SAT 98–100; BMI 27.4
--- NOTE | 2025-02-23 03:25 | ECG_ITS ---
APPROVED REPORT Exam: Resting ECG HR:65 bpm ECG Measurements Heart Rate 65 AXES SC 144 P 48 QRSd 91 QRS 49 QT 404 T 22 QTc 415 Conclusion SINUS RHYTHM POSSIBLE RIGHT ATRIAL ENLARGEMENT [0.25mV P-WAVE] POSSIBLE RIGHT VENTRICULAR CONDUCTION DELAY [RSR (QR) IN V1/V2] No STEMI Electronically signed by : KENNETH NELSON, 02/23/2025 05:17:44
[2025-02-23] MEDS: ASPIRIN 81MG CHEWABLE TABLET 324 MG PO (03:37)
[2025-02-23 03:38] LABS: Hematocrit 42.3 % (37.0-47.0); Hemoglobin 13.3 g/dL (12.2-16.2); Immature Granulocytes % 0.2 %; Mean Corpuscular HGB Conc 31.4 g/dL (31.8-35.4); Mean Corpuscular Hemoglobin 30.5 pg (27.0-31.2); Mean Corpuscular Volume 97.0 fl (81-99); Nucleated Red Blood Cells % 0 %; Platelet Count 294 K/mm3 (142-424); Red Blood Count 4.36 M/mm3 (4.20-5.40); Red Cell Distribution Width-SD 47.1 fL; White Blood Count 12.2 K/mm3 (4.8-10.8)
[2025-02-23 03:53] LABS: Alanine Aminotransferase 44 U/L (12-78); Albumin Level 4.6 g/dl (3.5-5.0); Albumin/Globulin Ratio 1.3 (1.1-1.8); Alkaline Phosphatase 87 U/L (38-126); Anion Gap 14.5 mEq/L (5-15); Aspartate Amino Transferase 36 U/L (14-36); Bilirubin,Total 0.3 mg/dl (0.2-1.3); Blood Urea Nitrogen 11 mg/dl (7-17); Calcium 9.2 mg/dl (8.4-10.2); Carbon Dioxide 26 mmol/L (22.0-30.0); Chloride 104 mmol/L (98-107); Creatinine Clearance Estimated 117 mL/min (50-200); Creatinine,Serum 0.80 mg/dl (0.52-1.04); Estimated Glomerular Filt Rate 81 ml/min (>60); GFR (African American) 98 ML/MIN (>60); Globulin 3.6 g/dL (1.3-3.2); Glucose 110 mg/dl (74-100); Potassium 3.5 mmoL/L (3.5-5.1); Sodium 141 mmol/L (136-145); Total Protein,Serum 8.2 g/dl (6.3-8.2)
[2025-02-23 04:17] LABS: Troponin I < 0.01 ng/ml (0.00-0.034)
--- NOTE | 2025-02-23 04:25 | PC.NURSE ---
PT transported to radiology via WC by radiology staff.
[2025-02-23 04:40] LABS: Troponin I < 0.01 ng/ml (0.00-0.034)
[2025-02-23 05:17] LABS: D-Dimer 0.91 ug/mL (0.0-0.5)
--- OUTSIDE RECORDS SUMMARY | 2025-02-23 05:35 | XMS_ITS | Encounter Summary ---
Author Organization [facility] Address [address] [place] [address] Care Team Providers Care Marketing Automation Manager Name Role Phone Moiz Kaplan DO Primary Care Provider [phone] Encounter Details Date Type Department Care Team (Latest Contact Info) Description 02/13/2025 Travel Social History Tobacco Use Types Packs/Day Years [...] things Not at all 02/13/2025 3:20 PM EDT Art Valles Feeling down, depressed, or hopeless Not at all 02/01 3:20 PM EDT Art Valles Patient Health Questionnaire-2 Score 0 02/01 3:20 PM EDT Art Valles * Question Answer Date of Assessment Author Trouble falling or staying a sleep, or sleeping too much Not at all 02/13/2025 3:20 PM JESUST Art Valles Feeling tired or having ninoska [...] television Not at all 02/13/2025 3:20 PM Art Cao Moving or speaking so slowly that other people could have noticed? Or the opposite - being so fidgety or restless that you have been moving around a lot more than usual. Not at all 02/13/2025 3:20 PM Art Cao Thoughts that you would be b gayla off or hurting yourself in some way Not at all 02/13/2025 3:20 PM Art Cao Patient Health Questionnaire-9 Score 0 02/01 3:20 PM Art Cao * Calculated C-SSRS Risk Score (Lifetime/Recent) Answer Date of Assessment Author No Risk Indicated 02/13/2025 3:20 PM Art Cao * If you checked off any problems [...] Art Valles documented as of this encounter Plan of Treatment Upcoming Encounters Date Type Department Care Team (Late st Contact Info) Description 03/19/2025 9:00 AM EDT Office Visit [facility] [place] [address] [facility], [address] [place] [address] Manjinder Munoz MD [address] [place] [address] documented as of this encounter Visit Diagnoses Not on filedocumented in this encounter Additional Health Concerns Assessment Noted Time PHQ-9 Depression Total Score: 0 02/14/20 3:20 PM EDT A fall risk assessment has been complete d for the patient 02/13/2025 3:20 PM EDT A Body Mass Index follow-up plan has been documented for the patient 02/13/2025 4:25 PM EDT documented as of this encounter Care Teams Marketing Automation Manager Relationship Specialty Start Date End Date Moiz Kaplan DO [address] [place] [address] PCP - General 11/12/24 documented as of this encounter
--- OUTSIDE RECORDS SUMMARY | 2025-02-23 05:35 | XMS_ITS | Referral Summary ---
Author Organization [employer] ([place], [place], [place], [place]) Address [address] [place] [address] Care Team Providers Care Patient Access Representative Name Role Phone EusebioMoiz Primary Care Provider [phone] Encounters Date Type Department Care Team Description 01/28/2025 Travel 01/28/2025 3:32 PM EDT - 01/28/2025 6:38 PM EDT Emergency [facility] Emergency Department [address] [place] [phone] Rodri Poole MD Chest pain, unspecified (Primary Dx); Chest pain, unspecified type Discharge Disposition: Home or Self Care from Last 3 Months Allergies Active Allergy Reactions Criticality Noted Date Comments Penicillin 02/19/2023 Topiramate 02/19/2023 Medications No known medications Social History Tobacco Use Types Packs/Day Years Used Date Smoking Tobacco: Never Smokeless Tobacco: Never Tobacco Cessation:Counseling Given: Not Answered Alcohol Use Standard Drinks/Week Comments Not Currently 0 (1 standard drink = 0.6 oz pur e alcohol) Family and Community Support Answer Alber e Recorded Help with Day to Day Activities Not on file 07/22/2023 Feeling Lonely or Isolated Not on file 07/22 Educational Attainment Answer Date Leonidas rded Speak language other than Jamaican at home Not on file 07/22/2023 Want [...] on file Sexual Orientation Not on file Last Filed Vital Signs Vital Sign Reading [...] Mass Index 27.44 01/28/2025 3:37 PM EDT Plan of Treatment Not on file Procedures Procedure Name Priority Date/Time Associated Diagnosis Comments FS_MODEL_IP_ECG 12-LEAD STAT 01/28/2025 6:05 PM EDT HIGH SENSITIVITY TROPONIN I STAT 01/28/2025 6:05 PM EDT D-DIMER STAT 01/28/2025 4:19 PM EDT HIGH SENSITIVITY TROPONIN I STAT 01/28/2025 4:19 PM EDT MAGNESIUM STAT 01/28/2025 4:19 PM EDT LIPASE STAT 01/28/2025 4:19 PM EDT COMPREHENSIVE METABOLIC PANEL STAT 01/28/2025 4:19 PM EDT CBC W/ AUTO DIFF STAT 01/28/2025 4:19 PM EDT XR CHEST 1 VIEW PORTABLE / BEDSIDE STAT 01/28/2025 3:44 PM EDT FS_MODEL_IP_ECG 12-LEAD STAT 01/28/2025 3:31 PM EDT from Last 3 Months Results * ECG 12 lead (01/28/2025 6:05 PM EDT) Only the most recent of2 resultswithin the time period is included. VENTRICULAR RATE EKG/MIN 56 BPM GE MUSE ATRIAL RATE (MCT) 56 BPM GE MUSE MT Interval 132 ms GE MUSE QRS-INTERVAL (MSEC) 76 ms GE MUSE QT Interval 452 ms GE MUSE QTC Interval 436 ms GE MUSE P [place] 49 degrees GE MUSE R AXIS (MCT) 41 degrees GE MUSE T Wave [place] 43 degrees GE MUSE [place] Diagnosis Sinus bradycardia Otherwise normal ECG Confirmed by Phu GAONA RICHARD ([id number]) on 01/29/2025 9:07:22 AM GE MUSE 01/28/2025 6:05 PM EDT 01/29/2025 9:07 AM EDT us Pamela [employer] SALES OUTFITTER ECG ORDERABLES Final Result Performing Organization Address [facility] de Phone Number GE MUSE * High Sensitivity Troponin I (01/28/2025 6:05 PM EDT) Only the most recent of2 resultswithin the time period is included. Pathologist [facility] Troponin I High Sensitivity (pg/mL) 4.9 4 - 60.3 pg/mL 01/28/2025 6:29 PM EDT [facility] Comment: Troponin Result (pg/mL) *Interpretation [...] 6:05 PM EDT 01/28/2025 6:08 PM EDT us [employer] SALES OUTFITTER LAB BLOOD ORDERABLES Final Res ult Performing Organization Address City/[facility] Co de Phone Number [facility] [address] [place], [place] [id number] [phone] * (ABNORMAL) CBC with Auto Diff (01/28/2025 4:19 PM EDT) WBC 12.3(H) 4.8 - 10.8 K/ L 01/28/2025 4:29 PM EDT [facility] RBC 4.35 3.50 - 5.20 M/ L 01/28/2025 4:29 PM EDT [facility] Hemoglobin 13.6 11.7 - 15.8 GM/DL 01/28/2025 4:29 PM EDT [facility] Hematocrit 40.5 35.0 - 47.0 % 01/28/2025 4:29 PM EDT [facility] MCV 93 81 - 101 fL 01/28/2025 4:29 PM EDT [facility] MCH 31.3 27.0 - 34.0 pg 01/28/2025 4:29 PM EDT [facility] MCHC 33.6 32.0 - 36.0 GM/DL 01/28/2025 4:29 PM EDT [facility] RDW 12.6 11.5 - 14.5 % 01/28/2025 4:29 PM EDT [facility] Platelets 274 150 - 400 K/CU MM 01/28/2025 4:29 PM EDT [facility] MPV 10.3 9.4 - 12.4 fL 01/28/2025 4:29 PM EDT [facility] Nucleated Red Blood Cell 0.0 0 - 0.2 % 01/28/2025 4:29 PM EDT [facility] % Neutros 64 37 - 80 % 01/28/2025 4:29 PM EDT [facility] % Lymphs 26 10 - 50 % 01/28/2025 4:29 PM EDT [facility] % Monos 8 5 - 13 % 01/28/2025 4:29 PM EDT [facility] % Eos 2 0 - 7 % 01/28/2025 4:29 PM EDT [facility] % Baso 0 0 - 3 % 01/28/2025 4:29 PM EDT [facility] NRBC Absolute <0.01 0 - 0.012 K/ul 01/28/2025 4:29 PM EDT [facility] # Neutros 7.86(H) 2.00 - 6.90 K/ L 01/28/2025 4:29 PM EDT [facility] # Lymphs 3.17 0.60 - 3.40 K/ L 01/28/2025 4:29 PM EDT [facility] # Monos 0.93(H) 0.00 - 0.90 K/ L 01/28/2025 4:29 PM EDT [facility] # Eos 0.21 0.00 - 0.70 K/ L 01/28/2025 4:29 PM EDT [facility] # Baso 0.04 0.00 - 0.20 K/ L 01/28/2025 4:29 PM EDT [facility] Immature Granulocytes-Re lative 0.30 % 01/28/2025 4:29 PM EDT [facility] # IG 0.04(H) 0.00 - 0.00 K/uL 01/28/2025 4:29 PM EDT [facility] Blood Venipuncture / Unknown 01/28/2025 4:19 PM EDT 01/28/2025 4:25 PM EDT Narrative [facility] - 01/28/2025 4:29 PM EDT [...] Atypical Lymph flag noted us Pamela Bey NP LAB BLOOD ORDERABLES Final Res ult [facility] [address] [phone] [phone] * D-dimer (01/28/2025 4:19 PM EDT) D-Dimer, Quant ([facility]) 249.97 <=500.00 ng/mL FEU 01/28/2025 5:17 PM EDT [facility] Comment: A normal D-dimer result [...] 4:25 PM EDT us Pamela J Strange SALES OUTFITTER LAB BLOOD ORDERABLES Final Res ult [facility] [address] [place] [address] * Magnesium (01/28/2025 4:19 PM EDT) Magnesium 2.0 1.8 - 2.4 mg/dL 01/28/2025 4:51 PM EDT [facility] Blood Venipuncture / Unknown 01/28/2025 4:19 PM EDT 01/28/2025 4:25 PM EDT Pamela J Strange SALES OUTFITTER LAB BLOOD ORDERABLES Final Res ult [facility] [address] [place] [address] * Lipase (01/28/2025 4:19 PM EDT) Lipase 41 16 - 77 U/L 01/28/2025 4:51 PM EDT [facility] Blood Venipuncture / Unknown 01/28/2025 4:19 PM EDT 01/28/2025 4:25 PM EDT us Pamela Bey SALES OUTFITTER LAB BLOOD ORDERABLES Final Res ult [facility] [address] [phone] * (ABNORMAL) Comprehensive metabolic panel (01/28/2025 4:19 PM EDT) Sodium 139 136 - 145 meq/L 01/28/2025 4:52 PM EDT [facility] Potassium 4.2 3.5 - 5.1 meq/L 01/28/2025 4:52 PM EDT [facility] Chloride 106 98 - 107 meq/L 01/28/2025 4:52 PM EDT [facility] CO2 24 21 - 32 meq/L 01/28/2025 4:52 PM EDT [facility] Calcium 8.9 8.5 - 10.1 mg/dL 01/28/2025 4:52 PM EDT [facility] Glucose 109(H) 74 - 100 mg/dL 01/28/2025 4:52 PM EDT [facility] BUN 10 7 - 18 mg/dL 01/28/2025 4:52 PM EDT [facility] Creatinine 0.82 0.55 - 1.10 mg/dL 01/28/2025 4:52 PM EDT [facility] BUN/Creatinine 12 01/28/2025 4:52 PM EDT [facility] Albumin 3.6 3.4 - 5.0 g/dL 01/28/2025 4:52 PM EDT [facility] Alkaline Phosphatase 100 46 - 116 U/L 01/28/2025 4:52 PM EDT [facility] ALT 28 12 - 78 U/L 01/28/2025 4:52 PM EDT [facility] AST 30 15 - 37 U/L 01/28/2025 4:52 PM EDT [facility] Total Bilirubin 0.5 0.2 - 1.0 mg/dL 01/28/2025 4:52 PM EDT [facility] Protein, Total 7.6 6.4 - 8.2 gm/dL 01/28/2025 4:52 PM EDT [facility] Anion Gap 13 11 - 22 01/28/2025 4:52 PM EDT [facility] A/G Ratio 0.9 01/28/2025 4:52 PM EDT [facility] Globulin 4.0 g/dL 01/28/2025 4:52 PM EDT [facility] Osmolality Calc 277.2 mOsm/kg 4:52 PM EDT [facility] eGFR (mL/min/1.73m2) >60 >=60 mL/min/1.7 3m2 01/28/2025 4:52 PM EDT [facility] Comment:ESTIMATED GFR IS NOT ACCURATE CREATININE CLEARANCE IN PREDICTING GLOMERULAR FILTRATION RATE. ESTIMATED GFR IS NOT APPLICABLE FOR DIALYSIS PATIENTS. Blood Venipuncture / Unknown 01/28/2025 4:19 PM EDT 01/28/2025 4:25 PM EDT us Pamela Bey SALES OUTFITTER LAB BLOOD ORDERABLES Final Res ult [facility] [address] [place] [address] * XR chest 1 view portable / [...] John Condon. Transcribed by Kayli Morales PA-C. us Pamela Bey NP IMG DIAGNOSTIC IMAGING ORDERAB LES Final Result from Last 3 Months Insurance [employer] Care Teams Patient Access Representative Relationship Specialty Start Date End Date Moiz Kaplan, [address] [place] [address] PCP - General Family Medicine 02/19/23
--- OUTSIDE RECORDS SUMMARY | 2025-02-23 05:35 | XMS_ITS | Encounter Summary ---
Author Organization [facility] Address [address] [place] [address] Care Team Providers Care Detective Chief Name Role Phone Moiz Kaplan DO Primary Care Provider [phone] Encounter Details Date Type Department Care Team (Latest Contact Info) Description 02/14/2025 Travel Social History Tobacco Use Types Packs/Day [...] on file documented as of this encounter Plan of Treatment Upcoming Encounters Date Type Department Care Team (Late st Contact Info) Description 03/19/2025 9:00 AM EDT Office Visit [facility] Idanha Coleraine [address], [address] [place] [address] Manjinder Munoz MD [address] [place] [address] documented as of this encounter [...] documented as of this encounter Care Teams Detective Chief Relationship Specialty Start Date End Date Moiz Kaplan DO [address] [place] [address] PCP - General 11/12/24 documented as of this encounter
--- OUTSIDE RECORDS SUMMARY | 2025-02-23 05:35 | XMS_ITS | Clinical Summary ---
Author Organization [employer] ([place], [place], [place], [place]) Address [address] [place] [address] Care Team Providers Care Charger Operator Name Role Phone EusebioMoiz DO Primary Care Provider [phone] Allergies Active Allergy Reactions Criticality Noted Date Comments Penicillin 02/19/2023 Topiramate 02/19/2023 Medications No known medications Encounters Date Type Department Care Team Description 01/28/2025 3:32 PM EDT - 01/28/2025 6:38 PM EDT Emergency [facility] Emergency Department [address] [place] [phone] Rodri Poole MD Chest pain, unspecified (Primary Dx); Chest pain, unspecified type Discharge Disposition: Home or Self Care 01/28/2025 Travel from Last 3 Months Social History Tobacco Use Types Packs/Day Years [...] Date Leonidas rded Speak language other than Northern Irish at home Not on file 07/22/2023 Want [...] 01/28/2025 3:37 PM EDT Plan of Treatment Health Maintenance Due Date Last Done Comments Depression Screening (12+) 1999 HIV Screening 2002 Hepatitis C Screening 2005 Pap Smear 2008 COVID-19 VACCINE (1 - 2023-2 5 season) 2024 Influenza Vaccine (#1) 2025 Tobacco Cessation Counseling and Screening (12+) 01/28/2026 01/28/2025 DTAP/TDAP/TD VACCINES (2 - T d or Tdap) 01/21/2035 01/21/2025 Pneumococcal Vaccine: 0-49 Years Aged Out No longer eligible based on patient's age to complete this topic Procedures Procedure Name Priority Date/Time Associated Diagnosis [...] ATRIAL RATE (MCT) 56 BPM GE MUSE GA Interval 132 ms GE MUSE QRS-INTERVAL (MSEC) 76 ms GE MUSE QT Interval 452 ms GE MUSE QTC Interval 436 ms GE MUSE P [place] 49 degrees GE MUSE R AXIS (MCT) 41 degrees GE MUSE T Wave [place] 43 degrees GE MUSE [place] Diagnosis Sinus bradycardia Otherwise normal ECG Confirmed by Phu GAONA, YOSELIN ([id number]) on 01/29/2025 9:07:22 AM GE MUSE 01/28/2025 6:05 PM EDT 01/29/2025 9:07 AM EDT us Pamela Bey NP ECG ORDERABLES Final Result GE MUSE * High Sensitivity Troponin I (01/28/2025 6:05 PM EDT) Only the most recent of2 resultswithin the time period is included. Troponin I High Sensitivity (pg/mL) 4.9 4 - 60.3 pg/mL 01/28/2025 6:29 PM EDT [facility] Comment: Troponin Result (pg/mL) *Interpretation [...] PM EDT 01/28/2025 6:08 PM EDT us Pamela Bey NP LAB BLOOD ORDERABLES Final Res ult [facility] [address] [phone] * (ABNORMAL) CBC with Auto Diff (01/28/2025 4:19 PM EDT) WBC 12.3(H) 4.8 - 10.8 K/ L 01/28/2025 4:29 PM EDT [facility] RBC 4.35 3.50 - 5.20 M/ L 01/28/2025 4:29 PM EDT [facility] Hemoglobin 13.6 11.7 - 15.8 GM/DL 01/28/2025 4:29 PM EDT [facility] Hematocrit 40.5 35.0 - 47.0 % 01/28/2025 4:29 PM EDT [facility] MCV 93 81 - 101 fL 01/28/2025 4:29 PM EDT [facility] MCH 31.3 27.0 - 34.0 pg 01/28/2025 4:29 PM EDT [facility] MCHC 33.6 32.0 - 36.0 GM/DL 01/28/2025 4:29 PM EDT [facility] RDW 12.6 11.5 - 14.5 % 01/28/2025 4:29 PM EDT [facility] Platelets 274 150 - 400 K/CU MM 01/28/2025 4:29 PM EDT [facility] MPV 10.3 9.4 - 12.4 fL 01/28/2025 4:29 PM EDT [facility] Nucleated Red Blood Cell 0.0 0 - 0.2 % 01/28/2025 4:29 PM EDT [facility] % Neutros 64 37 - 80 % 01/28/2025 4:29 PM EDT [facility] % Lymphs 26 10 - 50 % 01/28/2025 4:29 PM EDT [facility] % Monos 8 5 - 13 % 01/28/2025 4:29 PM EDT [facility] % Eos 2 0 - 7 % 01/28/2025 4:29 PM EDT [facility] % Baso 0 0 - 3 % 01/28/2025 4:29 PM EDT [facility] NRBC Absolute <0.01 0 - 0.012 K/ul 01/28/2025 4:29 PM EDT [facility] # Neutros 7.86(H) 2.00 - 6.90 K/ L 01/28/2025 4:29 PM EDT [facility] # Lymphs 3.17 0.60 - 3.40 K/ L 01/28/2025 4:29 PM EDT [facility] # Monos 0.93(H) 0.00 - 0.90 K/ L 01/28/2025 4:29 PM EDT [facility] # Eos 0.21 0.00 - 0.70 K/ L 01/28/2025 4:29 PM EDT [facility] # Baso 0.04 0.00 - 0.20 K/ L 01/28/2025 4:29 PM EDT [facility] Immature Granulocytes-Re lative 0.30 % 01/28/2025 4:29 PM EDT [facility] # IG 0.04(H) 0.00 - 0.00 K/uL 01/28/2025 4:29 PM EDT [facility] Blood Venipuncture / Unknown 01/28/2025 4:19 PM EDT 01/28/2025 4:25 PM EDT [facility] - 01/28/2025 4:29 PM EDT When [...] Blast? Flag noted Atypical Lymph flag noted Pameladelmy Vog[employer] MANAGER KNOWLEDGE LAB BLOOD ORDERABLES Final Res ult [facility] [address] [phone] * D-dimer (01/28/2025 4:19 PM EDT) Pathologist [facility] D-Dimer, Quant ([facility] SJE) 249.97 <=500.00 ng/mL FEU 01/28/2025 5:17 PM EDT [facility] Comment: A normal D-dimer result [...] PM EDT 01/28/2025 4:25 PM EDT Pamela [employer] MANAGER KNOWLEDGE LAB BLOOD ORDERABLES Final Res ult [facility] [address] [place] [address], [facility] [phone] * Magnesium (01/28/2025 4:19 PM EDT) Pathologist [facility] Magnesium 2.0 1.8 - 2.4 mg/dL 01/28/2025 4:51 PM EDT [facility] Blood Venipuncture / Unknown 01/28/2025 4:19 PM EDT 01/28/2025 4:25 PM EDT us Pamela J Strange MANAGER KNOWLEDGE LAB BLOOD ORDERABLES Final Res ult [facility] [address] [place] [address] * Lipase (01/28/2025 4:19 PM EDT) Lipase 41 16 - 77 U/L 01/28/2025 4:51 PM EDT [facility] Blood Venipuncture / Unknown 01/28/2025 4:19 PM EDT 01/28/2025 4:25 PM EDT us Pamela J Strange MANAGER KNOWLEDGE LAB BLOOD ORDERABLES Final Res ult Performing Organization Address City/[facility]/ZIP Co de Phone Number [facility] [address] [place] [address] * (ABNORMAL) Comprehensive metabolic panel (01/28/2025 4:19 PM EDT) Sodium 139 136 - 145 meq/L 01/28/2025 4:52 PM EDT [facility] Potassium 4.2 3.5 - 5.1 meq/L 01/28/2025 4:52 PM EDT [facility] Chloride 106 98 - 107 meq/L 01/28/2025 4:52 PM EDT [facility] CO2 24 21 - 32 meq/L 01/28/2025 4:52 PM EDT [facility] Calcium 8.9 8.5 - 10.1 mg/dL 01/28/2025 4:52 PM EDT [facility] Glucose 109(H) 74 - 100 mg/dL 01/28/2025 4:52 PM EDT [facility] BUN 10 7 - 18 mg/dL 01/28/2025 4:52 PM EDT [facility] Creatinine 0.82 0.55 - 1.10 mg/dL 01/28/2025 4:52 PM EDT [facility] BUN/Creatinine 12 01/28/2025 4:52 PM EDT [facility] Albumin 3.6 3.4 - 5.0 g/dL 01/28/2025 4:52 PM EDT [facility] Alkaline Phosphatase 100 46 - 116 U/L 01/28/2025 4:52 PM EDT [facility] ALT 28 12 - 78 U/L 01/28/2025 4:52 PM EDT [facility] AST 30 15 - 37 U/L 01/28/2025 4:52 PM EDT [facility] Total Bilirubin 0.5 0.2 - 1.0 mg/dL 01/28/2025 4:52 PM EDT [facility] Protein, Total 7.6 6.4 - 8.2 gm/dL 01/28/2025 4:52 PM EDT [facility] Anion Gap 13 11 - 22 01/28/2025 4:52 PM EDT [facility] A/G Ratio 0.9 01/28/2025 4:52 PM EDT [facility] Globulin 4.0 g/dL 01/28/2025 4:52 PM EDT [facility] Osmolality Calc 277.2 mOsm/kg 4:52 PM EDT [facility] eGFR (mL/min/1.73m2) >60 >=60 mL/min/1.7 3m2 01/28/2025 4:52 PM EDT [facility] Comment:ESTIMATED GFR IS NOT ACCURATE CREATININE CLEARANCE IN PREDICTING GLOMERULAR FILTRATION RATE. ESTIMATED GFR IS NOT APPLICABLE FOR DIALYSIS PATIENTS. Blood Venipuncture / Unknown 01/28/2025 4:19 PM EDT 01/28/2025 4:25 PM EDT us Pamela Bey NP LAB BLOOD ORDERABLES Final Res ult [facility] [address] [place] [address], [facility] [phone] * XR chest 1 view portable / [...] Final Result from Last 3 Months [facility] Care Teams Charger Operator Relationship Specialty Start Date End Date Moiz Kaplan, DO [address] [place] [address] PCP - General Family Medicine 02/19/23
--- OUTSIDE RECORDS SUMMARY | 2025-02-23 05:36 | XMS_ITS | Clinical Summary ---
Author Organization [facility] Address [address] [place] [address] Care Team Providers Care Religion Professor Name Role Phone Moiz Kaplan DO Primary Care Provider [phone] Allergies Active Allergy Reactions Criticality Noted Date Comments Penicillin G Other - please docum ent in the comment field Low 02/19/2023 Topiramate Hives Medium 02/19/2023 Medications metoprolol succinate XL (Toprol-XL) 25 MG 24 hr tablet Take 1 tablet by mouth daily. Do not crush or chew. Active amphetamine-dext roamphetamine XR (Adderall XR) 20 MG 24 hr capsule Take 1 capsule by mouth every morning. Do not crush or chew. Active nitroglycerin (Nitrostat) 0.[address] 1 tablet under the tongue every 5 minutes as needed for chest pain. Active amLODIPine (Norvasc) 5 MG tabletIndication s:Cardiomyopathy , hypertrophic (CMS/HCC) Take 1 tablet by mouth daily. 90 tablet 2 02/14/20 25 026 Active amLODIPine (Norvasc) 2.5 MG tablet Take 2 tablets by mouth daily. 10/12/19 25 025 Discontinued Active Problems Problem Noted Date Diagnosed Date Paroxysmal atrial fibrillation 02/13/2025 Palpitations 02/13/2025 Cardiomyopathy, hypertrophic 02/13/2025 PVC (premature ventricular contraction) 02/14/20 Encounters Date Type Department Care Team Description 02/14/2025 Travel 02/13/2025 4:15 PM EDT - 02/13/2025 11:59 PM EDT Hospital Encounter Medical Office Building Cardiac Diagnostic Testing Medical Office Building Echo Lab [address], [address] [place] [address] PVC (premature ventricular contraction) Discharge Disposition: Home or Self Care 02/13/2025 3:30 PM EDT Office Visit [facility] [address], [address] [place] [address] Clau Farrell, FRUIT THINNER MACHINE OPERATOR Paroxysmal atrial fibrillation (CMS/HCC) (Primary Dx); Palpitations; Cardiomyopathy, hypertrophic (CMS/HCC); PVC (premature ventricular contraction) 02/13/2025 Travel 02/07/2025 Telephone [facility] [address], [address] [place] [address] Kayli Shaw, LEIGHANN, DNP 01/28/2025 Orders Only External Location [address] [place] [id number] Provider, External from Last 3 Months Family History Medical History Relation Name Comments No Known Problems Father Heart disease Mother Hypertrophic cardiomyopathy Mother Cardiac Devices Pacemaker Present Sister Hypertrophic cardiomyopathy Sister Relation Name Status Comments Father Alive Mother Alive Sister Alive Social History Tobacco Use Types Packs/Day Years [...] Pulse 57 02/13/2025 3:23 PM EDT Temperature 36.5 C (97.7 F) 11/12/2024 6:30 PM EDT Respiratory Rate 18 11/12/2024 6:30 PM EDT Oxygen Saturation 97% 02/13/2025 3:23 PM EDT Inhaled Oxygen Concentration - - Weight 85.2 kg (187 lb 13.3 oz) 02/13/2025 3:23 PM EDT Height 165.1 cm (5' 5 ) 02/13/2025 3:23 PM EDT Body Mass Index 31.26 02/13/2025 3:23 PM EDT Plan of Treatment Upcoming Encounters Date Type Department Care Team (Late st Contact Info) Description 03/19/2025 9:00 AM EDT Office Visit [facility] [address], [address] [place] [address] Manjinder Munoz MD [address] [place] [address] Health Maintenance Due Date Last Done Comments [facility]-Infant/Child/Adol SDOH Screenings 1987 [facility]-Varicella Vaccines (1 of 2 - 13+ 2-dose series) 2000 [facility]- SDOH Screenings 2005 [facility]-Adult SDOH Screenings 2005 [facility]-Hepatitis B Vaccines (1 of 3 - 19+ 3-dose series) 2006 [facility]-Pneumococcal Vaccine: Pediatrics (0 to 5 Years) and At-Risk Patients (6 to 49 Years) (1 of 2 - PCV) 2006 HPV Vaccines (1 - 3-dose SCD M series) 2014 [id number]-28 Vaccine (1 - season) 2024 [facility]-Influenza Vaccine (#1) 2025 [facility]-Depression Screening 02/13/2026 025, 02/13/2025 [facility]-DTaP,Tdap,and Td Vaccine s (2 - Td or Tdap) 01/21/2035 01/21/2025 [facility]-Zoster Vaccines (1 of 2) 2037 [facility]-HIV Screening Completed 11/12/2024 [facility]-Hepatitis C Screening Completed 11/12/2024 [facility]-Obesity Intervention Completed 02/13/2025 [facility]-HIB Vaccines Aged Out No longer e ligible based on patient's age to complete this topic [facility]-Hepatitis A Vaccines Aged Out No longer eligible based on patient's age to complete this topic [facility]-IPV Vaccines Aged Out No longer e ligible based on patient's age to complete this topic [facility]-Rotavirus Vaccines Aged Out No lo nger eligible based on patient's age to complete this topic Procedures Procedure Name Priority Date/Time Associated Diagnosis Comments ECG ADULT Routine 02/13/2025 3:52 PM EDT Paroxysmal atrial fibrillation (CMS/HCC) XR OUTSIDE IMAGES 01/28/2025 3:3 8 PM EDT HEPATITIS C ANTIBODY - ED W/REFLEX TO HCV QUANT PCR STAT 11/12/2024 1:45 PM EDT ED HIV 1/2 ANTIBODY/ANTIGEN SCREEN WITH REFLEX TO HIV I/II DIFFERENTIATION STAT 11/12/2024 1:45 PM EDT from Last 3 Months or Most Recently Relevant to Health Maintenance Results * ECG Adult (Now - Performed in your clinic) (02/13/2025 3:52 PM EDT) EKG DIAGNOSIS CLASS Abnormal MUSE ECG Ventricular Rate 63 BPM MUSE ECG Atrial Rate 63 BPM MUSE ECG [place] Interval 146 ms MUSE ECG QRSD Interval 74 ms MUSE ECG QT Interval 418 ms MUSE ECG QTC Interval 427 ms MUSE ECG P [place] 37 degrees MUSE ECG R [place] 19 degrees MUSE ECG T Wave [place] 27 degrees MUSE ECG Diagnosis Normal sinus rhythm MUSE ECG Diagnosis Prolonged QT MUSE ECG Diagnosis Abnormal ECG MUSE ECG Diagnosis MUSE ECG Diagnosis Confirmed by Tania Fonseca ([id number]) on 02/14/2025 9:38:18 AM MUSE ECG 02/13/2025 3:52 PM EDT 02/14/2025 9:38 AM EDT us Clau Farrell FRUIT THINNER MACHINE OPERATOR ECG ORDERABLES Final Result MUSE ECG * XR OUTSIDE IMAGES (01/28/2025 3:38 PM EDT) Anatomical Region Laterality Modality Radiographic Margaret ging 01/28/2025 3:38 PM EDT External Provider IMG XR PROCEDURES Final Result * ED HIV 1/2 Antibody/Antigen Screen w/Reflex to HIV 1/2 Differentiation (11/12/2024 1:45 PM EDT) HIV 1 & 2 Antibody/Antigen Screen Non Reactive Non Reactive 11/12/2024 3:25 PM EDT [facility] Comment:Screening for HIV 1 & 2 antibodies, and P24 antigen is NONREACTIVE. No confirmatory testing is required. Blood Venous blood specimen / Unknown Venipuncture / Unknown 11/12/2024 1:45 PM EDT 11/12/2024 2:40 PM EDT Baltazar Tovar MD LAB BLOOD ORDERABLES Final Res ult Performing Organization Address [facility]/ZIP Co de Phone Number [facility] [address] [place] [address] * Hepatitis C Antibody - ED (11/12/2024 1:45 PM EDT) Pathologist [facility] [place] Hepatitis C Antibody Negative Negative 11/12/2024 3:25 PM EDT [facility] Blood Venous blood specimen / Unknown Venipuncture / Unknown 11/12/2024 1:45 PM EDT 11/12/2024 2:41 PM EDT Baltazar Tovar MD LAB BLOOD ORDERABLES Final Res ult [facility] [address] [place] [address] from Last 3 Months or Most Recently Relevant to Health Maintenance Insurance [employer] [facility] MEDICAID Care Teams Religion Professor Relationship Specialty Start Date End Date Moiz Kaplan DO [address] [place] [address] PCP - General 11/12/24
--- OUTSIDE RECORDS SUMMARY | 2025-02-23 05:36 | XMS_ITS | Encounter Summary ---
Author Organization [facility] ([place], [place], [place], [place]) Address [address] [place] [address] Care Team Providers Care Nurse Practitioner Physician Assistant Name Role Phone Moiz Kaplan DO Primary Care Provider [phone] Encounter Details Date Type Department Care Team (Latest Contact Info) Description 01/28/2025 Travel Social History Tobacco Use Types Packs/Day [...] Date Leonidas rded Speak language other than Malian at home Not on file 07/22/2023 Want [...] as of this encounter Plan of Treatment Not on file documented as of this encounter Visit Diagnoses Not on filedocumented in this encounter Care Teams Nurse Practitioner Physician Assistant Relationship Specialty Start Date End Date Moiz Kaplan DO [address] [place] [address] PCP - General Family Medicine 02/19/23 documented as of this encounter
--- OUTSIDE RECORDS SUMMARY | 2025-02-23 05:36 | XMS_ITS | Encounter Summary ---
Author Organization [facility] Address [address] [place] [address] Care Team Providers Care Shed Hand Name Role Phone Moiz Kaplan DO Primary Care Provider Encounter Details Date Type Department Care Team (Late Contact Info) Description 01/28/2025 Orders Only External Location [address] [place] [address] Provider, External Social History Tobacco Use Types Packs/Day Years Used Date Smoking Tobacco: Never Assessed Comments Unknown Sex and Gender Information Value Date Recorded Sex Assigned at Not on file Legal Sex Female 6:31 PM EDT Gender Identity Not on file Sexual Orientation Not on file documented as of this encounter Plan of Treatment Upcoming Encounters Date Type Department Care Team (Late st Contact Info) Description 03/19/2025 9:00 AM EDT Office Visit [facility] [address] [place] [id number] Manjinder Munoz MD [address] [place] [address] documented as of this encounter Procedures Procedure Name Priority Date/Time Associated Diagnosis Comments XR OUTSIDE IMAGES 01/28/2025 3:38 PM EDT documented in this encounter Results * XR OUTSIDE IMAGES (01/28/2025 3:38 PM EDT) Anatomical Region Laterality Modality Radiographic Margaret ging 01/28/2025 3:38 PM EDT us External Provider IMG XR PROCEDURES Final Result documented in this encounter Visit Diagnoses Not on filedocumented in this encounter Care Teams Shed Hand Relationship Specialty Start Date End Date Moiz Kaplan DO [address] [place] [address] PCP - General 11/12/24 documented as of this encounter
--- OUTSIDE RECORDS SUMMARY | 2025-02-23 05:36 | XMS_ITS | Encounter Summary ---
Author Organization [facility] Address [address] [place] [address] Care Team Providers Care Hide Curer Name Role Phone Moiz Kaplan DO Primary Care Provider Encounter Details Date Type Department Care Team (Late Contact Info) Description 02/07/2025 Telephone [facility] [address], [address] [place] [address] Kayli Shaw APRN, DAISY [address] [place] [address] Social History Tobacco Use Types Packs/Day Years Used Date Smoking Tobacco: Never Assessed Comments Unknown Sex and Gender Information Value Date Recorded Sex Assigned at Not on file Legal Sex Female 6:31 PM EDT Gender Identity Not on file Sexual Orientation Not on file documented as of this encounter Miscellaneous Notes * Telephone Encounter - Kayli Shaw RN - 02/07/2025 10:44 AM EDT RN attempted to call patient to discuss cardiac history for records/images at OSH and confirm appointment on 02/13/2025. No answer, left VM with call back number. Kayli TIPTON documented in this encounter Plan of Treatment Upcoming Encounters Date Type Department Care Team (Late Contact Info) Description 03/19/2025 9:00 AM EDT Office Visit [facility] [address], [address] [place] [address] Manjinder Munoz MD [address] [place] [address] documented as of this encounter Visit Diagnoses Not on filedocumented in this encounter Care Teams Hide Curer Relationship Specialty Start Date End Date Moiz Kaplan DO [address] [place] [address] PCP - General 11/12/24 documented as of this encounter
[2025-02-23] MEDS: KETOROLAC 30MG/ML VIAL 30 MG IV (05:39)
--- NOTE | 2025-02-23 05:42 | XR_ITS ---
PROCEDURE INFORMATION: Exam: XR Chest Exam date and time: 02/23/2025 5:46 AM Age: 39 years old Clinical indication: Pain; Other: Cp TECHNIQUE: Imaging protocol: Radiologic exam of the chest. Views: 2 views. COMPARISON: CT ANGIO CHEST PE PROTOCOL 02/23/2025 4:25 AM FINDINGS: Tubes, catheters and devices: Leads overlying chest. Device overlying thorax. Lungs: No consolidation. Pleural spaces: No significant pleural effusion. No pneumothorax. Heart/Mediastinum: No cardiomegaly. Bones/joints: No displaced fracture. Soft tissues: Unremarkable. IMPRESSION: No definite acute cardiopulmonary disease.
--- NOTE | 2025-02-23 06:00 | P.HP_ITS ---
History of Present Illness *Admission Date: 02/23/25 *Reason for visit:: Chest pain *History of present illness: This is a very pleasant 39-year-old female with a past medical history of hypertrophic cardiomyopathy who presents emergency department today with chest pain. 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 States that she always has some element of chest pain at baseline but this was worse. Has been seen by cardiology and being worked up for worsening hypertrophic cardiomyopathy. Is currently wearing a Holter monitor and states that this has been to be read in approximately 1 week. She is set to have an ablation soon. She reports intermittent episodes of PVCs and tachycardia but did not experience those symptoms this evening. States that her chest pain is always squeezing-like in nature and nothing makes it better or worse. Emergency department workup unremarkable except for elevated D-dimer of 0.91. She was set to go for CTA pulmonary scan but secondary to patient's Holter monitor was unable to have the scan completed. Patient is otherwise stable. EKG without abnormality. Will admit for further observation of chest pain and echocardiogram this a.m. [facility] Disclaimer: The information contained in this section may have been updated after the patient was seen, as this information can be updated by other users. Social History Smoking Status: Never smoker alcohol intake: never current occupational status: employed Travel in the last 8 weeks?: None Review of Systems Review of Systems Review of systems:: pertinent systems reviewed and negative unless documented below Review of systems (narrative): Negative except for HPI Meds Home Medications and Allergies New Prescriptions to Start Prescriptions: Allergies Allergy/AdvReac Type Severity Reaction Status Date / Time Penicillins AdvReac Other Verified 02/23/25 05:34 topiramate AdvReac Other Verified 02/23/25 05:34 Exam Data for Last 24 hours Vital signs and Labs for Last 24 Hours: Temp Pulse Resp BP Pulse Ox O2 Del Method 98.4 F 59 L 21 108/66 L 100 Room Air 02/23/25 05:30 02/23/25 05:30 02/23/25 05:30 02/23/25 05:30 02/23/25 05:30 02/23/25 05:30 Laboratory Results - last 24 hr 02/23/25 03:25: WBC 12.2 H, RBC 4.36, Hgb 13.3, Hct 42.3, MCV 97.0, MCH 30.5, MCHC 31.4 L, RDW 13.2, Plt Count 294, MPV 10.6 H, Neut % (Auto) 59.0, Lymph % (Auto) 33.2, [place] % (Auto) 5.8, Eos % (Auto) 1.6, Baso % (Auto) 0.2, Neut # (Auto) 7.2, Lymph # (Auto) 4.0, [place] # (Auto) 0.7, Eos # (Auto) 0.2, Baso # (Auto) 0.0, D-Dimer 0.91 H, Sodium 141, Potassium 3.5, Chloride 104, Carbon Dioxide 26, Anion Gap 14.5, BUN 11, Creatinine 0.80, Estimated Creat Clear 117, Estimated GFR 81, Est GFR ( Amer) 98, Glucose 110 H, Calcium 9.2, Total Bilirubin 0.3, AST 36, ALT 44, Alkaline Phosphatase 87, Troponin I < 0.01 02/23/25 03:25: Troponin I < 0.01, Total Protein 8.2, Albumin 4.6, Globulin 3.6 H, Albumin/Globulin Ratio 1.3 I & O for Last 24 hours: Intake & Output 02/20/25 02/21/25 02/22/25 02/23/25 23:59 23:59 23:59 23:59 Weight 77.111 kg Constitutional Constitutional: no acute distress *Routine HEENT Exam Head: Present normocephalic Eye: Present EOMI and PERRL ENT: Present mucous membranes moist *Routine Neck Exam Neck: Present supple; Absent lymphadenopathy *Routine Respiratory Exam Respiratory: Present CTA bilaterally *Routine Cardiovascular Exam Cardiovascular: Present RRR Comments: Frequent PVCs *Routine Abdominal Exam Abdominal: Present soft and normoactive bowel sounds; Absent tenderness *Routine Rectal Exam Rectal:: deferred *Routine Genitalia Exam Genitalia:: deferred *Routine Extremities Exam Extremities: Absent cyanosis, clubbing or edema *Routine Skin Exam Skin: Present warm; Absent rash *Routine Neurological Exam Neurological: Present alert and oriented X3 Assessment and Plan *Assessment and plan (1) Chest pain: Status: Acute Category: Medical Code(s): R07.9 - Chest pain, unspecified (2) Hypertrophic cardiomyopathy: Status: Acute Category: Medical Code(s): I42.2 - Other hypertrophic cardiomyopathy Plan #Chest pain #Hypertrophic cardiomyopathy #Arrhythmia Patient reports squeezing-like chest pain that she has all the time but states it was suddenly worse this evening. Multiple PVCs noted on bedside monitor. Patient has Holter monitor placed on by . Is been to be read next week. Soraya ent is also scheduled for an ablation in 2 weeks Admitted for further observation of chest pain. Will get echocardiogram this a.m. if able. Trend troponin Continue daily aspirin Will give 1 dose of morphine for pain Cardiac consult order
--- NOTE | 2025-02-23 06:02 | PC.NURSE ---
REport called to Avelino Capps RN
[2025-02-23 06:04] LABS: Cholesterol 210 mg/dl (140-200); HDL Cholesterol 42 mg/dl (40-60); Triglycerides 157 mg/dl (30-150)
[2025-02-23] MEDS: MORPHINE 2MG/ML SYRINGE 1 MG IV (06:06)
--- NOTE | 2025-02-23 06:07 | ED_ITS ---
Discharge Plan Disposition Patient Disposition: Admitted Condition: Good Clinical Impressions Clinical Impression: Hypertrophic cardiomyopathy, Unstable angina Discharge ED Provider: Jared Larson General Chief Complaint: Chest Pain Stated Complaint: chest pain Time Seen by Provider: 02/23/25 03:25 Mode of Arrival: Ambulatory Source of Information: Patient Description of Symptoms (Recalled from ER Triage Doc. by RN): Pt presents for evaluation of midternal chest pain/pressure that began approx 2300 before coming into work. Pt reports pain radiating into her left arm with no N/V. Pt reports that she is currently wearing a surveillance system monitor that was ordered per her tail dogger at stating I think I'm scheduled to have an ablation in a week or 2 Pt reports associated SOA. History of Present Illness HPI narrative: 39-year-old female with history of hypertrophic cardiomyopathy who is currently wearing a Holter monitor presents to the ER with chest pain and pressure. Patient states she has been dealing with increasing chest pressure in the last few days. She reports she is used to having some but it has been worse, tonight approximately 1.5 hours before she checked and she noted that her pressure worsened. She also is concerned about increased palpitation burden. She believes she is scheduled to have an ablation in about 2 weeks due to PVCs. She is currently wearing a Holter monitor from but when asked adamantly states she does not want to go to [facility] for any reason. She has no headache or dizziness, no cough, nausea, vomiting, diarrhea. She does report a sensation of shortness of breath but is saturating 100% on room air. Does report a history of PE multiple years ago and is no longer on blood thinners. She states this does not feel like her previous blood clot. Related Data Allergies Allergy/AdvReac Type Severity Reaction Status Date / Time Penicillins AdvReac Other Verified 02/23/25 05:34 topiramate AdvReac Other Verified 02/23/25 05:34 [facility] Disclaimer: The information contained in this section may have been updated after the patient was seen, as this information can be updated by other users. Social History Smoking Status: Never smoker alcohol intake: never current occupational status: employed Travel in the last 8 weeks?: None ROS Obtained: Yes Systems reviewed as appropriate & no additional complaints except as documented Per HPI Physical Exam General General appearance: alert and in no apparent distress Head Head exam: atraumatic and normocephalic Eye Eye exam: Present PERRL and EOMI ENT ENT exam: Present mucous membranes moist Neck Neck exam: Present normal inspection and full ROM Chest Chest inspection: Present symmetric chest wall rise; Absent tenderness Respiratory Respiratory exam: Present normal lung sounds bilaterally; Absent respiratory distress, wheezes or stridor Cardiovascular Cardiovascular exam: Present regular rate, normal rhythm and other (Occasional PVC) Abdominal Exam Abdominal exam: Present soft; Absent distention or tenderness Extremities Exam Extremities exam: Present full ROM; Absent edema Neurological Exam Neurological exam: Present alert and oriented X3; Absent motor sensory deficit Psychiatric Psychiatric exam: Present normal affect and normal mood Skin Skin exam: Present warm and dry HEART Score HEART Score HEART Score assessment performed?: Yes History (anamnesis): Slightly suspicious ECG: Normal Age: <45 years Risk factors: 1-2 risk factors Troponin: </= normal limit HEART Score: 1 Critical Care Critical Care Time Critical Care Time: No Medical Decision Making Arben Inquiry Pt receiving controlled substance: No Vital Signs Vital Signs: 02/23/25 03:23 02/23/25 04:26 02/23/25 05:30 Temperature 98.7 F 98.4 F Temperature Source Oral Pulse Rate 65 59 L Pulse Rate [Radial] 69 Respiratory Rate 16 18 21 Blood Pressure 115/61 108/66 L Blood Pressure [Right Arm] 154/90 H Blood Pressure Mean [Right Arm] 111 Blood Pressure Position [Right Arm] Sitting 02 Sat by Pulse Oximetry 100 99 100 Oxygen Delivery Method Room Air Room Air Room Air Lab Data Labs: Lab Results 02/23/25 03:25: WBC 12.2 H, RBC 4.36, Hgb 13.3, Hct 42.3, MCV 97.0, MCH 30.5, M CHC 31.4 L, RDW 13.2, Plt Count 294, MPV 10.6 H, Neut % (Auto) 59.0, Lymph % (Auto) 33.2, [place] % (Auto) 5.8, Eos % (Auto) 1.6, Baso % (Auto) 0.2, Neut # (Auto) 7.2, Lymph # (Auto) 4.0, [place] # (Auto) 0.7, Eos # (Auto) 0.2, Baso # (Auto) 0.0, D-Dimer 0.91 H, Sodium 141, Potassium 3.5, Chloride 104, Carbon Dioxide 26, Anion Gap 14.5, BUN 11, Creatinine 0.80, Estimated Creat Clear 117, Estimated GFR 81, Est GFR ( Amer) 98, Glucose 110 H, Calcium 9.2, Total Bilirubin 0.3, AST 36, ALT 44, Alkaline Phosphatase 87, Troponin I < 0.01 02/23/25 03:25: Troponin I < 0.01, Total Protein 8.2, Albumin 4.6, Globulin 3.6 H, Albumin/Globulin Ratio 1.3 02/23/25 03:25 02/23/25 03:25 Response Orders (Tests/Meds): ED MEDICATIONS Generic Name Dose Route Start Last Admin Trade Name Freq PRN Reason Stop Dose Admin Belladonna Alkaloids 60 ml 02/23/25 05:34 02/23/25 05:42 Belladonna Alkaloids 60 Ml Ml PO 02/23/25 05:35 Not Given ONCE ONE Ketorolac Tromethamine 30 mg 02/23/25 05:33 02/23/25 05:39 Ketorolac 30mg/Ml Vial IV 02/23/25 05:34 30 mg ONCE ONE Administration Morphine Sulfate 1 mg 02/23/25 05:58 Morphine 2mg/Ml Syringe IV 02/23/25 05:59 ONCE ONE Discontinued Medications Generic Name Dose Route Start Last Admin Trade Name Freq PRN Reason Stop Dose Admin Aspirin 324 mg 02/23/25 03:28 02/23/25 03:37 Aspirin 81mg Chewable Tablet PO 02/23/25 03:29 324 mg ONCE ONE Administration ORDERS Category Date Time Status Consult to Cardiology [CONS] Routine Cons 02/23/25 05:42 Active CXR 2 view (NOT portable) [XR chest 2V] Stat Exams 02/23/25 05:42 Taken Basic Metabolic Panel AMLAB Lab 02/24/25 06:00 Ordered Complete Blood Count Auto Diff AMLAB Lab 02/24/25 06:00 Ordered Complete Blood Count Auto Diff Stat Lab 02/23/25 03:25 Completed Comprehensive Metabolic Panel Stat Lab 02/23/25 03:25 Completed D-Dimer Stat Lab 02/23/25 03:25 Completed Lipid Panel AMLAB Lab 02/23/25 06:00 Received Troponin I Q3H Lab 02/23/25 06:30 Ordered Troponin I Q3H Lab 02/23/25 09:30 Ordered Troponin I Stat Lab 02/23/25 03:25 Received MDM Narrative Medical Decision Narrative: In summary, this 39-year-old female with comorbidities described in the HPI which are not at goal therapy presents to the emergency department today with chest pressure, sensation of shortness of breath. On initial evaluation patient is hemodynamically stable, afebrile, saturating 100% on room air, benign cardiopulmonary exam aside from a few PVCs, remainder of exam benign, cannot exacerbate chest pain during my exam. Differential diagnosis includes but is not limited to ACS, PE, arrhythmia, electrolyte abnormalities, esophageal spasm, pneumothorax, pneumonia, among others. Based on these concerns, I ordered hematologic and serum labs, cardiac workup, CTA PE. ECG personally interpreted demonstrates sinus rhythm, rate 65, normal axis, normal CT and QTc, no STEMI. Patient received aspirin initially for treatment. Due to history of hypertrophic cardiomyopathy and patient being unsure if she has any obstructive component, will not do nitro at this time as I do not want to worsen her symptoms or reduce her preload. Labs personally reviewed demonstrate trace leukocytosis which is nonspecific and nonactionable, no anemia, normal platelets, CMP nonactionable, initial troponin undetectably low less than 0.01 which does offer significant reassurance. D- dimer was not initially ordered, however patient went back to CT and with her Holter monitor in place it was going to cause severe artifact. She was explicitly told not to remove it and at this time would prefer to leave it in place which I believe is reasonable. Therefore D-dimer was added to workup. This is 0.91. Patient is otherwise very well-appearing, not hemodynamically unstable, saturating well on room air, no evidence of DVT. I do not believe CTA PE is indicated at this time. XR personally interpreted demonstrates no acute thoracic abnormality, see radiology read final interpretation. Patient received Toradol for chest pain. I had ordered GI cocktail but she declined this stating it makes her throw up. Patient still has discomfort in her chest and given her cardiac history I believe it is prudent to have the patient admitted and she is agreeable to this. She is refusing to go to so she will be admitted at this facility. I discussed this case with the hospitalist including patient's history, Holter monitor, current findings, D- dimer. Patient was graciously accepted for admission and admitted in stable condition.
[2025-02-23 07:04] LABS: Troponin I < 0.01 ng/ml (0.00-0.034)
[2025-02-23 08:16] LABS: Troponin I < 0.01 ng/ml (0.00-0.034)
[2025-02-23 10:19] LABS: Troponin I < 0.01 ng/ml (0.00-0.034)
[2025-02-23] MEDS: HYDROCODONE/APAP 5/325 MG TABLET 1 TAB PO (12:22)
--- NOTE | 2025-02-23 15:38 | EXP.DC.SUM ---
General Admission date:: 02/23/25 Discharge date: 02/23/25 HPI HPI HPI: This is a very pleasant 39-year-old female with a past medical history of hypertrophic cardiomyopathy who presents emergency department today with chest pain. 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 States that she always has some element of chest pain at baseline but this was worse. Has been seen by [facility] and being worked up for worsening hypertrophic cardiomyopathy. Is currently wearing a Holter monitor and states that this has been to be read in approximately 1 week. She is set to have an ablation soon. She reports intermittent episodes of PVCs and tachycardia but did not experience those symptoms this evening. States that her chest pain is always squeezing-like in nature and nothing makes it better or worse. Emergency department workup unremarkable except for elevated D-dimer of 0.91. She was set to go for CTA pulmonary scan but secondary to patient's Holter monitor was unable to have the scan completed. Patient is otherwise stable. EKG without abnormality. Will admit for further observation of chest pain and echocardiogram this a.m. Hospital Course Hospital Course Hospital Course: This is a very pleasant 39-year-old female with a past medical history of hypertrophic cardiomyopathy who presents emergency department today with chest pain. 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 States that she always has some element of chest pain at baseline but this was worse. Has been seen by cardiology and being worked up for worsening hypertrophic cardiomyopathy. Is currently wearing a Holter monitor and states that this has been to be read in approximately 1 week. She is set to have an ablation soon. She reports intermittent episodes of PVCs and tachycardia but did not experience those symptoms this evening. States that her chest pain is always squeezing-like in nature and nothing makes it better or worse. Patient mentions she does not want to be waiting till tuesday to see program research specialist, case discussed with cardiology over the phone, patient is recommended to follow up on tuesday at 1pm in cardiology clinic with Dr. Ramos, patient informed and agreed with the plan, patient will be discharged on ASA 81mg Daily Exam Data for Last 24 hours Vital signs and Labs for Last 24 Hours: Temp Pulse Resp BP Pulse Ox O2 Del Method 98.4 F 68 18 130/79 98 Room Air 02/23/25 12:00 02/23/25 12:00 02/23/25 12:00 02/23/25 12:00 02/23/25 12:00 02/23/25 15:00 Laboratory Results - last 24 hr 02/23/25 03:25: WBC 12.2 H, RBC 4.36, Hgb 13.3, Hct 42.3, MCV 97.0, MCH 30.5, MCHC 31.4 L, RDW 13.2, Plt Count 294, MPV 10.6 H, Neut % (Auto) 59.0, Lymph % (Auto) 33.2, [place] % (Auto) 5.8, Eos % (Auto) 1.6, Baso % (Auto) 0.2, Neut # (Auto) 7.2, Lymph # (Auto) 4.0, [place] # (Auto) 0.7, Eos # (Auto) 0.2, Baso # (Auto) 0.0, D-Dimer 0.91 H, Sodium 141, Potassium 3.5, Chloride 104, Carbon Dioxide 26, Anion Gap 14.5, BUN 11, Creatinine 0.80, Estimated Creat Clear 117, Estimated GFR 81, Est GFR ( Amer) 98, Glucose 110 H, Calcium 9.2, Total Bilirubin 0.3, AST 36, ALT 44, Alkaline Phosphatase 87, Troponin I < 0.01 02/23/25 03:25: Troponin I < 0.01 02/23/25 03:25: Troponin I < 0.01, Total Protein 8.2, Albumin 4.6, Globulin 3.6 H, Albumin/Globulin Ratio 1.3, Triglycerides 157 H, Cholesterol 210 H, LDL Cholesterol Direct 130.88 H, VLDL Cholesterol 31, HDL Cholesterol 42, Cholesterol/HDL Ratio 5.0 H 02/23/25 06:13: Troponin I < 0.01 02/23/25 09:45: Troponin I < 0.01 I & O for Last 24 hours: Intake & Output 02/20/25 02/21/25 02/22/25 02/23/25 23:59 23:59 23:59 23:59 Output Total 0 / 0 Balance 0 / 0 Weight 77.111 kg Constitutional Constitutional: no acute distress *Routine HEENT Exam Head: Present normocephalic Eye: Present EOMI and PERRL ENT: Present mucous membranes moist *Routine Neck Exam Neck: Present supple; Absent lymphadenopathy *Routine Respiratory Exam Respiratory: Present CTA bilaterally *Routine Cardiovascular Exam Cardiovascular: Present RRR *Routine Abdominal Exam Abdominal: Present soft and normoactive bowel sounds; Absent tenderness *Routine Extremities Exam Extremities: Absent cyanosis, clubbing or edema *Routine Skin Exam Skin: Present warm; Absent rash *Routine Neurological Exam Neurological: Present alert and oriented X3 Results Data Completed and Pending Labs on day of discharge: Labs from last 24 hours 02/23/25 02/23/25 02/23/25 09:45 06:13 03:25 WBC RBC Hgb Hct MCV MCH MCHC RDW Plt Count MPV Neut % (Auto) Lymph % (Auto) [place] % (Auto) Eos % (Auto) Baso % (Auto) Neut # (Auto) Lymph # (Auto) [place] # (Auto) Eos # (Auto) Baso # (Auto) D-Dimer Sodium Potassium Chloride Carbon Dioxide Anion Gap BUN Creatinine Estimated Creat Clear Estimated GFR Est GFR ( Amer) Glucose Calcium Total Bilirubin AST ALT Alkaline Phosphatase Troponin I < 0.01 < 0.01 < 0.01 Total Protein 8.2 Albumin 4.6 Globulin 3.6 H Albumin/Globulin Ratio 1.3 Triglycerides 157 H Cholesterol 210 H LDL Cholesterol Direct 130.88 H VLDL Cholesterol 31 HDL Cholesterol 42 Cholesterol/HDL Ratio 5.0 H 02/23/25 02/23/25 03:25 03:25 WBC 12.2 H RBC 4.36 Hgb 13.3 Hct 42.3 MCV 97.0 MCH 30.5 MCHC 31.4 L RDW 13.2 Plt Count 294 MPV 10.6 H Neut % (Auto) 59.0 Lymph % (Auto) 33.2 [place] % (Auto) 5.8 Eos % (Auto) 1.6 Baso % (Auto) 0.2 Neut # (Auto) 7.2 Lymph # (Auto) 4.0 [place] # (Auto) 0.7 Eos # (Auto) 0.2 Baso # (Auto) 0.0 D-Dimer 0.91 H Sodium 141 Potassium 3.5 Chloride 104 Carbon Dioxide 26 Anion Gap 14.5 BUN 11 Creatinine 0.80 Estimated Creat Clear 117 Estimated GFR 81 Est GFR ( Amer) 98 Glucose 110 H Calcium 9.2 Total Bilirubin 0.3 AST 36 ALT 44 Alkaline Phosphatase 87 Troponin I < 0.01 < 0.01 Total Protein Albumin Globulin Albumin/Globulin Ratio Triglycerides Cholesterol LDL Cholesterol Direct VLDL Cholesterol HDL Cholesterol Cholesterol/HDL Ratio DS: Diagnosis Discharge Diagnosis (1) Chest pain: Status: Acute Code(s): R07.9 - Chest pain, unspecified (2) Hypertrophic cardiomyopathy: Status: Acute Code(s): I42.2 - Other hypertrophic cardiomyopathy Meds Home Medications and Allergies Home Medications ?Medication ?Instructions ?Recorded ?Confirmed ?Type aspirin 81 mg tablet 81 mg PO DAILY #14 tabs 02/23/25 Rx New Prescriptions to Start Prescriptions: aspirin Wayne,Irfan Allergies Allergy/AdvReac Type Severity Reaction Status Date / Time Penicillins AdvReac Other Verified 02/23/25 05:34 topiramate AdvReac Other Verified 02/23/25 05:34 Discharge Plan Disposition Patient Disposition: Home, Self-Care Condition: Good Follow up Plan Follow up with: Charles Álvarez MD [Primary Care Provider, Internal Medicine] - Enter time for follow up Referral Note: please call office for follow up Matt Jonas MD [Staff Physician, Cardiology] - 02/25/25 1:00 pm Referral Note: please follow up cardiology clinic Prescriptions/Medication Reconciliation: New aspirin 81 mg tablet 81 mg PO DAILY Qty: 14 0RF Problem Reconciliation Problems Reviewed?: Yes Patient Discharge Instructions ACTIVITY: Limited activity DIET: continue same diet Patient Instructions: DI for Angina Print Language: Thai Providers Primary Care Provider: Charles Álvarez Admit Provider: Freddy Bright Attending Provider: Freddy Bright
--- NOTE | 2025-02-25 09:58 | SW/DCPLANNER ---
Spoke with patient on the phone. Patient stated that she is not doing well. Patient stated that she is aware of her upcoming appointment and is not going to keep it because she is not going to see the aircraft design engineer here in [place]. 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 Patient kept stating that she was told that she was getting medicine called in for pain. Nurse Natalie Adame looked and nothing was called in and the patient hung up the phone on her. Patient stated that she has no concerns or questions at this time. Parvez ROQUE Software Engineer Intern
== END 2025-02-23 16:13 | disposition home or self-care (01) ==
LOC: ER 05:34 → 2ND 05:50
PROVIDERS: Nurse Practitioner Acute Care; Admitting Provider Internal Medicine Adolescent Medicine; Emergency Provider Emergency Medicine; PCP Family Medicine; Visit Provider Internal Medicine Adolescent Medicine
DX: I42.2 Other hypertrophic cardiomyopathy (principal); Z88.0 Allergy status to penicillin; Z88.8 Allergy status to other drugs, medicaments and biological substances
CPT/HCPCS: 36415; 71046; 80053; 80061; 84484; 85025; 85378; 93005; 96374; 96375; 99285; G0378; J1885; J2270